=== PATIENT | male | born 1965 | race African-American/Black ===

== ENCOUNTER 2016-08-28 11:02 | Emergency (ER) | payer BC ==
[2016-08-28 11:14] VITALS: TEMP 98.5; BMI 27.4
--- NOTE | 2016-08-28 11:48 | PDOC ---
History of Present Illness - General Chief Complaint: Blood Sugar Problem Stated Complaint: COUGH (DIABETIC) Time Seen by Provider: 08/28/16 11:37 History Source: Patient Exam Limitations: No Limitations - History of Present Illness Initial Comments: 08/28/16 13:13 Patient came for evaluation of moist cough without fevers 2 weeks. Denies phlegm production, denies fever, denies any ear or throat pain. Has not taken any medication for relief other than [id number] cough and cold medicine which had mild results. 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 Patient also is a diabetic who was seen and treated at the [facility] for long-term diabetic controlled with metformin and Januvia. However states metformin is new as they are trying to control his numbers to less than 200 and is concerned that his blood sugar needs to be in better control. If any dizziness, headaches, any hyperglycemia. States this morning when he checked his sugar was 200 08/28/16 13:16 Timing/Duration: unsure Severity: mild Associated Symptoms: reports: denies symptoms Past History - Travel Traveled outside of the country in the last 30 days: No Close contact w/someone who was outside of country & ill: No - Past Medical History Allergies/Adverse Reactions: Allergies Allergy/AdvReac Type Severity Reaction Status Date / Time No Known Allergies Allergy Verified 08/28/16 11:11 Home Medications: Ambulatory Orders Albuterol Sulfate Inhaler - [Ventolin HFA Inhaler -] 1 - 2 inh PO Q4H #1 inhaler 08/28/16 Cetirizine HCl/Pseudoephedrine [Allergy+Congestion Relf-D Tab] 1 each PO DAILY # 30 tab 08/28/16 Metformin HCl [Metformin HCl ER] 1,000 mg PO DAILY 08/28/16 Sitagliptin Phos/Metformin HCl [Janumet 50-1,000 mg Tablet] 1 each PO BID Diabetes: Yes HTN: Yes - Psycho/Social/Smoking Cessation Hx Suicidal Ideation: No Smoking History: Never smoked Have you smoked in the past 12 months: No Information on smoking cessation initiated: No Hx Alcohol Use: No Drug/Substance Use Hx: No Substance Use Type: Alcohol Review of Systems - Review of Systems Able to Perform ROS?: Yes Is the patient limited Syriac proficient: Yes Constitutional: Yes: Symptoms Reported, See HPI, Malaise. No: Fever HEENTM: Yes: See HPI, Nose Congestion (clear). No: Symptoms Reported Respiratory: Yes: Symptoms reported, See HPI, Cough (non productive ) Cardiac (ROS): No: Symptoms Reported ABD/GI: No: Symptoms Reported Musculoskeletal: No: Symptoms Reported Integumentary: No: Symptoms Reported Neurological: No: Symptoms reported All Other Systems: Reviewed and Negative *Physical Exam - Vital Signs Last Vital Signs Temp Pulse Resp BP Pulse Ox 98.5 F 104 H 18 120/82 98 08/28/16 11:12 08/28/16 11:12 08/28/16 11:12 08/28/16 11:12 08/28/16 11:12 - Physical Exam General Appearance: Yes: Nourished, Appropriately Dressed. No: Apparent Distress HEENT: positive: RENUKA, TMs Normal (congested but landmarks easily visualized), Pharynx Normal, Rhinorrhea, Sinus Tenderness Neck: positive: Supple. negative: Tender, Lymphadenopathy (R), Lymphadenopathy (L) Respiratory/Chest: positive: Lungs Clear (coarse but clear, and diminished ). negative: Respiratory Distress, Crackles Gastrointestinal/Abdominal: positive: Soft. 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 States feels much improved and is ready for discharge. Add antihistamine with decongestant and continue Proventil pump. Full follow-up with PMD 08/29/16 16:38 *DC/Admit/Observation/Transfer Diagnosis at time of Disposition: Allergic rhinitis Qualifiers: Allergic rhinitis trigger: unspecified Allergic rhinitis seasonality: unspecified seasonality Qualified Code(s): J30.9 - Allergic rhinitis, unspecified - Discharge Dispostion Disposition: HOME Condition at time of disposition: Stable Admit: No - Prescriptions Prescriptions: Cetirizine HCl/Pseudoephedrine [Allergy+Congestion Relf-D Tab] 1 each PO DAILY # 30 tab Albuterol Sulfate Inhaler - [Ventolin HFA Inhaler -] 1 - 2 inh PO Q4H #1 inhaler - Patient Instructions Printed Discharge Instructions: DI for Allergic Rhinitis Additional Instructions: Rest, drink lots of fluids: Teas, water, soups Saltwater gargles. Consider humidifier in room at night Steamy showers/seem to face break up mucus Avoid contact with allergens, exposure to pollens, close windows on a windy day Lots of handwashing and good hygiene Continue [id number] medications for symptomatic relief- may use allergic eyedrops for itching I Continue antihistamines daily until pollen season is over; Zyrtec, Claritin, Arti during the daytime and Benadryl at nighttime as will make sleepy Tylenol or Motrin for fever and pain 2 puffs of Proventil inhaler 4 times a day for the next 3 days then as needed for continued cough and shortness of breath Followup with private physician in one to 2 days evaluation and treatment Consider following up with an alarm technician/quality assurance lab technician for skin testing and possible allergy shots Return to emergency department for worsened symptoms, fevers, dehydration - Post Discharge Activity Work/School Note: Back to Work
[2016-08-28] MEDS ORDERED: ALBUTEROL SO4 2.5/IPRATROPIUM 0.5 INH SOL 3 ML VIAL.NEB. NEB ONE ×2 (11:51→13:15)
[2016-08-28 15:30] VITALS: BP 118/72; PULSE 89
== END 2016-08-28 15:33 | disposition home or self-care (01) ==
LOC: JER 11:02
PROC: 3E0F7GC Introduction of Other Therapeutic Substance into Respiratory Tract, Via Natural or Artificial Opening (ICD-10-PCS; principal; 2016-08-28)
DX: J30.9 Allergic rhinitis, unspecified (principal); E11.9 Type 2 diabetes mellitus without complications; I10 Essential (primary) hypertension; Z79.84 Long term (current) use of oral hypoglycemic drugs
CPT/HCPCS: 99283-25

== ENCOUNTER 2017-10-17 12:57 | Inpatient (IN) | payer BC ==
--- NOTE | 2017-10-17 13:39 | PDOC ---
History of Present Illness <Sidra Livingston - Last Filed: 10/17/17 17:18> - History of Present Illness Initial Comments: 10/17/17 13:34 52-year-old male with a history of [id number] diabetes, hypertension presents to the emergency Department with chest pain 2 hours ago that has since resolved. 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 Patient reports the pain felt like someone was kicking him. He then sat down and states the pain resolved on its own after 10 mins. He states the pain was associated with lightheadedness and a dull gradual onset frontal headache both of which have also resolved. No treatments tried. Patient reports multiple similar episodes of chest pain in the past, most recently 6 months ago for which she was evaluated by a sales promotion representative in [place] and had a normal stress test and normal EKG. Pain at that time was also with activity, denies CP at rest. Patient currently is asymptomatic. Denies any fevers, chills, coughing, weakness , shortness of breath, diaphoresis, abdominal pain, lower extremity swelling. Patient last traveled 4 months ago, no recent immobility. Denies any family history of cardiac disease. Denies any history of smoking. <Alona Ybarra - Last Filed: 10/17/17 17:52> - General Chief Complaint: Chest Pain Stated Complaint: CHEST PAIN Time Seen by Provider: 10/17/17 13:12 Past History <Sidra Livingston - Last Filed: 10/17/17 17:18> - Past Medical History COPD: No Diabetes: Yes HTN: Yes - Suicide/Smoking/Psychosocial Hx Smoking History: Never smoked Have you smoked in the past 12 months: No Hx Alcohol Use: No Drug/Substance Use Hx: No Substance Use Type: Alcohol <Alona Ybarra - Last Filed: 10/17/17 17:52> - Past Medical History Allergies/Adverse Reactions: Allergies Allergy/AdvReac Type Severity Reaction Status Date / Time No Known Allergies Allergy Verified 10/17/17 13:05 Home Medications: Ambulatory Orders Albuterol Sulfate Inhaler - [Ventolin HFA Inhaler -] 1 - 2 inh PO Q4H #1 inhaler 08/28/16 Cetirizine HCl/Pseudoephedrine [Allergy+Congestion Relf-D Tab] 1 each PO DAILY # 30 tab 08/28/16 Metformin HCl [Metformin HCl ER] 1,000 mg PO DAILY 08/28/16 Sitagliptin Phos/Metformin HCl [Janumet 50-1,000 mg Tablet] 1 each PO BID Review of Systems - Review of Systems Comments:: 10/17/17 13:38 GENERAL/CONSTITUTIONAL: No fever or chills. No weakness. HEAD, EYES, EARS, NOSE AND THROAT: No change in vision. No ear pain or discharge. No sore throat. GASTROINTESTINAL: No nausea, vomiting, diarrhea or constipation. GENITOURINARY: No dysuria, frequency, or change in urination. CARDIOVASCULAR: +chest pain, no shortness of breath. RESPIRATORY: No cough, wheezing, or hemoptysis. MUSCULOSKELETAL: No joint or muscle swelling or pain. No neck or back pain. SKIN: No rash NEUROLOGIC: +headache, +lightheadness, no vertigo, loss of consciousness, or change in strength/sensation. ENDOCRINE: No increased thirst. No abnormal weight change. HEMATOLOGIC/LYMPHATIC: No anemia, easy bleeding, or history of blood clots. ALLERGIC/IMMUNOLOGIC: No hives or skin allergy. <Alona Ybarra - Last Filed: 10/17/17 17:52> *Physical Exam - Vital Signs Last Vital Signs Temp Pulse Resp BP Pulse Ox 98.6 F 61 18 101/82 99 10/17/17 13:03 10/17/17 14:11 10/17/17 14:11 10/17/17 14:11 10/17/17 14:11 <Sidra Livingston - Last Filed: 10/17/17 17:18> - Vital Signs Last Vital Signs Temp Pulse Resp BP Pulse Ox 98.6 F 90 18 139/93 99 10/17/17 13:03 10/17/17 13:03 10/17/17 13:03 10/17/17 13:03 10/17/17 13:03 - Physical Exam Comments: 10/17/17 13:40 GENERAL: Awake, alert, and fully oriented, in no acute distress HEAD: No signs of trauma EYES: PERRLA, EOMI, sclera anicteric, conjunctiva clear ENT: Auricles normal inspection, hearing grossly normal, nares patent, oropharynx clear without exudates. Moist mucosa NECK: Normal ROM, supple, no lymphadenopathy, JVD, or masses LUNGS: Breath sounds equal, clear to auscultation bilaterally. No wheezes, and no crackles HEART: Regular rate and rhythm, normal S1 and S2, no murmurs, rubs or gallops. + tenderness when palpating sternum ABDOMEN: Soft, nontender, normoactive bowel sounds. No guarding, no rebound. No masses EXTREMITIES: Normal range of motion, no edema. No clubbing or cyanosis. No cords, erythema, or tenderness NEUROLOGICAL: Normal speech, cranial nerves intact, negative pronator drift, 5/ 5 strength in all 4 extremities, normal sensation to light touch in all 4 extremities, normal cerebellar exam, normal gait, normal reflexes and tone SKIN: Warm, Dry, normal turgor, no rashes or lesions noted. <Alona Ybarra - Last Filed: 10/17/17 17:52> Heart Score/ECG Review - History History: Moderately suspicious - Electrocardiogram EKG: Non specific repolarization disturbance - Age Age: 45-65 - Risk Factors Risk Factors Heart Score: Yes Hx Hypertension, Yes Hx Diabetes, Yes Hx Obesity Based on the list above the patient has:: >/=3 risk factors or Hx atherosclerotic disease - Troponin Troponin: </= normal limit - Score Heart Score - Total: 5 #1 10/17/17 13:43 Twelve-lead EKG was performed and reviewed by me. Normal sinus rhythm, rate 89. Normal axis. No ST elevations. T wave flattening in leads 1 and V6 with a T- wave inversion in aVL. No previous EKGs in our system to compare. <Alona Ybarra - Last Filed: 10/17/17 17:52> ED Treatment Course - LABORATORY CBC & Chemistry Diagram: 10/17/17 14:05 10/17/17 14:05 - ADDITIONAL ORDERS Additional order review: 10/17/17 14:05 RBC 4.81 MCV 84.3 MCHC 33.9 RDW 13.9 MPV 8.0 Neutrophils % 48.2 D Lymphocytes % 40.8 H D Monocytes % 8.9 Eosinophils % 1.3 D Basophils % 0.8 D - RADIOLOGY Radiograph Interpretation: 10/17/17 14:37 Chest X-Ray was reviewed by Dr. Ybarra and over-read by Radiology. Impression: No evidence of active pulmonary disease. <Sidra Livingston - Last Filed: 10/17/17 17:18> - LABORATORY CBC & Chemistry Diagram: 10/17/17 14:05 10/17/17 14:05 - RADIOLOGY Radiology Studies Ordered: Category Date Time Status CHEST X-RAY PORTABLE* [RAD] Stat Radiology 10/17/17 13:34 Ordered <Alona Ybarra - Last Filed: 10/17/17 17:52> Medical Decision Making - Medical Decision Making 10/17/17 17:18 Dr. Katalina Traore's office was called to discussion patient's admission. She was paged at 3:14 pm, then a second time at 4:[address] Traore called back but she hung up after being on hold for too long. She was paged again at 4:32 pm and we are currently awaiting a call back. Case discussed with Dr. Traore at 5:15 pm. <Sidra Livingston - Last Filed: 10/17/17 17:18> - Medical Decision Making 10/17/17 13:44 52-year-old male with a history of diabetes and hypertension presents emergency department with exertional chest pain. Vitals Unremarkable. Exam with only tenderness to palpation of the sternum. EKG with some T-wave flattening and a single inversion in aVL, but no ST elevations. Heart score is 5. Given elevated heart score, patient is at moderate risk for a cardiac event. We'll check labs including troponin, x-ray and admit to observation. 10/17/17 17:51 Labs, CXR wnl Case discussed with Dr. Traore, pt admitted to tele obs Case discussed in detail with admitting physician including history, physical exam and ancillary studies. Admitting physician has assumed care for the patient, will follow all pending diagnostics and will complete the evaluation and treatment. <Alona Ybarra - Last Filed: 10/17/17 17:52> *DC/Admit/Observation/Transfer - Attestations Scribe Attestion: 10/17/17 14:37 Documentation prepared by Sidra Livingston, acting as medical records manager for Alona Ybarra MD. <Sidra Livingston Last Filed: 10/17/17 17:18> - Discharge Dispostion Decision to Admit order: Yes - Attestations Physician Attestion: 10/17/17 17:52 I, Dr. Alona Ybarra MD, attest that this document has been prepared under my direction and personally reviewed by me in its entirety. I further attest, that it accurately reflects all work, treatment, procedures and medical decision -making performed by me. <Alona Ybarra - Last Filed: 10/17/17 17:52> Diagnosis at time of Disposition: Chest pain - Discharge Dispostion Condition at time of disposition: Stable - Referrals Referrals: Garfield Hernadez MD [Primary Care Provider] -
[2017-10-17 14:15] LABS: BASO % 0.8 % (0-2.0); EOS % 1.3 % (0-4.5); HEMATOCRIT 40.6 % (35.4-49); HEMOGLOBIN 13.8 GM/dL (11.7-16.9); LYMPH % 40.8 % (8-40); MCH 28.6 pg (25.7-33.7); MCHC 33.9 g/dl (32.0-35.9); MEAN CELL VOLUME 84.3 fl (80-96); MONO % 8.9 % (3.8-10.2); NEUT % 48.2 % (42.8-82.8); PLATELET COUNT 230 K/MM3 (134-434); RBC 4.81 M/mm3 (4.00-5.60); RDW 13.9 % (11.9-15.9); WHITE BLOOD COUNT 4.1 K/mm3 (4.0-10.0)
[2017-10-17 14:42] LABS: ANION GAP 7 (8-16); BILIRUBIN,TOTAL 0.3 mg/dL (0.2-1.0); BLOOD UREA NITROGEN 14 mg/dL (7-18); CALCIUM 9.4 mg/dL (8.5-10.1); CHLORIDE 105 mmol/L (98-107); CO2 25 mmol/L (21-32); CREATININE 1.2 mg/dL (0.7-1.3); GLUCOSE,RANDOM 192 mg/dL (74-106); MAGNESIUM 1.6 mg/dL (1.8-2.4); POTASSIUM 4.3 mmol/L (3.5-5.1); SGOT/AST 18 U/L (15-37); SODIUM 137 mmol/L (136-145); TOT PROT 7.6 g/dl (6.4-8.2)
[2017-10-17 14:48] LABS: ALK PHOS 94 U/L (45-117); SGPT/ALT 33 U/L (12-78)
[2017-10-17] MEDS ORDERED: ASPIRIN 325 MG TABLET PO ONE (15:10)
[2017-10-17] MEDS ORDERED: ASPIRIN 325 MG TABLET ONE (15:16)
[2017-10-18 06:02] LABS: BASO % 0.7 % (0-2.0); EOS % 2.1 % (0-4.5); HEMATOCRIT 40.5 % (35.4-49); HEMOGLOBIN 13.9 GM/dL (11.7-16.9); LYMPH % 37.5 % (8-40); MCHC 34.2 g/dl (32.0-35.9); MEAN PLT VOLUME 7.9 fl (7.5-11.1); MONO % 9.5 % (3.8-10.2); NEUT % 50.2 % (42.8-82.8); PLATELET COUNT 207 K/MM3 (134-434); RBC 4.77 M/mm3 (4.00-5.60); RDW 13.8 % (11.9-15.9); WHITE BLOOD COUNT 4.7 K/mm3 (4.0-10.0)
[2017-10-18 06:23] LABS: ALBUMIN 3.8 g/dl (3.4-5.0); ALK PHOS 82 U/L (45-117); ANION GAP 7 (8-16); BILIRUBIN,TOTAL 0.4 mg/dL (0.2-1.0); BLOOD UREA NITROGEN 15 mg/dL (7-18); CALCIUM 8.9 mg/dL (8.5-10.1); CHLORIDE 106 mmol/L (98-107); CO2 28 mmol/L (21-32); CREATININE 1.1 mg/dL (0.7-1.3); GLUCOSE,RANDOM 142 mg/dL (74-106); POTASSIUM 4.6 mmol/L (3.5-5.1); SGOT/AST 18 U/L (15-37); SGPT/ALT 31 U/L (12-78); SODIUM 141 mmol/L (136-145); TOT PROT 7.4 g/dl (6.4-8.2)
[2017-10-18] MEDS: metFORMIN HCL 500 MG TABLET (FP) PO SCH ×2 (07:05→17:11)
[2017-10-18] MEDS: sitaGLIPtin PHOSPHATE 50 MG TABLET PO SCH ×2 (07:05→17:11)
[2017-10-18] MEDS ORDERED: sitaGLIPtin PHOSPHATE 50 MG TABLET ONE (07:50)
[2017-10-18] MEDS ORDERED: metFORMIN HCL 500 MG TABLET (FP) ONE (07:50)
[2017-10-18] MEDS: INSULIN SLIDING SCALE (NOVOLOG) 1 VIAL SQ SCH ×5 (08:06→21:34)
--- NOTE | 2017-10-18 08:33 | CON.CARD ---
Consult Consult Specialty:: Cardiology Referred by:: Dr. Traore Reason for Consultation:: chest pain - History of Present Illness Chief Complaint: chest pain History of Present Illness: 52M DM, HTN, HL presented to ER from work with "pounding" chest pain. Central sternal, associated with mild SOB, endorses nausea. No diaphoresis. No palpitations. No edema, no CHF sx. CK and TnI negative x 2. CXR WNL. Of note, echo and ETT in office earlier this year was unremarkable. - History Source History Provided By: Patient, Medical Record Limitations to Obtaining History: No Limitations - Past Medical History Cardio/Vascular: Yes: HTN Endocrine: Yes: Diabetes Mellitus - Alcohol/Substance Use Hx Alcohol Use: No - Smoking History Smoking history: Never smoked Have you smoked in the past 12 months: No Home Medications - Allergies Allergies/Adverse Reactions: Allergies Allergy/AdvReac Type Severity Reaction Status Date / Time No Known Allergies Allergy Verified 10/17/17 13:05 - Home Medications Home Medications: Ambulatory Orders Albuterol Sulfate Inhaler - [Ventolin HFA Inhaler -] 1 - 2 inh PO Q4H #1 inhaler 08/28/16 Cetirizine HCl/Pseudoephedrine [Allergy+Congestion Relf-D Tab] 1 each PO DAILY # 30 tab 08/28/16 Metformin HCl [Metformin HCl ER] 1,000 mg PO DAILY 08/28/16 Sitagliptin Phos/Metformin HCl [Janumet 50-1,000 mg Tablet] 1 each PO BID Family Disease History - Family Disease History Family History: Unremarkable (Born in [facility], does not know history) Review of Systems Findings/Remarks: see HPI - Review of Systems Constitutional: reports: No Symptoms Eyes: reports: No Symptoms HENT: reports: No Symptoms Neck: reports: No Symptoms Cardiovascular: reports: Chest Pain Gastrointestinal: reports: Nausea Genitourinary: denies: No Symptoms, Burning, Discharge, Dysuria, Flank Pain, Frequency, Hematuria, Incontinence, Lesions, Menses, Pain, Testicular Mass, Testicular Pain, Testicular Swelling, Urgency, Vaginal Bleeding, Other Breasts: denies: No Symptoms Reported, See HPI, Breast Implants, Discharge from Nipple, Lumps, Pain, Skin Changes, Other Musculoskeletal: denies: No Symptoms, Back Pain, Crepitus, Decreased ROM, Extremity Pain, Joint Pain, Joint Swelling, Muscle Pain, Muscle Cramps, Muscle Weakness, Other Integumentary: denies: No Symptoms, Blister, Bruising, Change in Color, Eczema, Erythema, Incision, Lesions, Lump, Pallor, Pruritis, Rash, Wound, Other Neurological: denies: No Symptoms, Change in LOC, Change in Speech, Confusion, Dizziness, Headache, Incoordination, Numbness, Parasthesia, Pre-Existing Deficit , Seizure, Syncope, Tremors, Unsteady Gait, Weakness, Other Endocrine: denies: No Symptoms, Excessive Sweating, Flushing, Increased Hunger, Increased Thirst, Intolerance to Cold, Intolerance to Heat, Unexplained Weight Gain, Unexplained Weight Loss, Other Hematology/Lymphatic: denies: No Symptoms, Easily Bruised, Excessive Bleeding, Swollen Glands, Other Psychiatric: denies: No Symptoms, Altered Sleep Pattern, Anxiety, Depression, Hallucinations, Panic, Paranoia, Suicidal, Other - Risk Factors Known Risk Factors: Yes: Diabetes Mellitus, Hypertension Vital Signs: Vital Signs Temperature 98.2 F 10/18/17 06:32 Pulse Rate 73 10/18/17 06:32 Respiratory Rate 17 10/18/17 06:32 Blood Pressure 144/93 10/18/17 06:32 O2 Sat by Pulse Oximetry (%) 100 10/18/17 06:32 Constitutional: Yes: No Distress, Calm Eyes: Yes: Conjunctiva Clear, EOM Intact HENT: Yes: Atraumatic, Normocephalic Neck: Yes: Supple, Trachea Midline Respiratory: Yes: CTA Bilaterally Gastrointestinal: Yes: Soft (non-tender) Cardiovascular: Yes: Regular Rate and Rhythm JVD: No Carotid Bruit: No PMI: Non-Displaced Heart Sounds: Yes: S1, S2 (RRR. No m/r/g) Edema: No Peripheral Pulses WNL: No Neurological: Yes: Alert, Oriented - Other Data Labs, Other Data: CBC, BMP 10/18/17 05:45 10/18/17 05:45 Troponin, BNP 10/17/17 10/17/17 10/18/17 14:05 14:05 05:45 Troponin I < 0.02 < 0.02 B-Natriuretic Peptide < 5.00 L Troponin, BNP 10/17/17 10/17/17 10/18/17 14:05 14:05 05:45 Troponin I < 0.02 < 0.02 B-Natriuretic Peptide < 5.00 L Laboratory Tests 10/17/17 10/18/17 10/18/17 14:05 05:45 05:45 WBC 4.7 Hgb 13.9 Plt Count 207 Sodium Potassium BUN Creatinine Creatine Kinase 277 Troponin I < 0.02 < 0.02 10/18/17 05:45 WBC Hgb Plt Count Sodium 141 Potassium 4.6 BUN 15 Creatinine 1.1 Creatine Kinase Troponin I NSR, cannot r/o old septal NV Echo: Pending Ejection Fraction %: LVEF > or = 40 % Imaging - Results Chest X-ray: Report Reviewed, Image Reviewed EKG: Image Reviewed (NSR, Cannot r/o old septal NV, no acute ST changes) Assessment/Plan IMP: Several cardiac risk factors with atypical CP and negative cardiac enzymes REC: Telemetry. For echo for EF assessment, r/o pericardial disease, PHTN. After 3rd enzymes, stress MIBI today. ASA Further reccs pending above diagnostic evaluation.
[2017-10-18] MEDS ORDERED: PATIENT'S OWN MEDICATION (NON-FORMULARY) (Sitagliptin Phos/Metformin Hcl [Janumet 50-1,000 PO SCH (10:00)
[2017-10-18] MEDS ORDERED: PANTOPRAZOLE 40 MG TABLET (FP) PO SCH (10:00)
[2017-10-18] MEDS: HEPARIN NA (PORCINE) 5,000 UNITS/ML 1ML VIAL SQ SCH ×3 (10:00→21:34)
[2017-10-18] MEDS ORDERED: PANTOPRAZOLE 40 MG TABLET (FP) ONE (10:42)
[2017-10-18] MEDS ORDERED: HEPARIN NA (PORCINE) 5,000 UNITS/ML 1ML VIAL ONE (10:43)
--- NOTE | 2017-10-18 12:39 | ECHO ---
Name: ADÁN, MIKE Exam:Adult Echocardiogram Study Date: 10/18/2017 09:17 AM Reason For Study: Chest pain Height: 66 in Weight: 170 lb BSA: 1.9 m2 MMode/2D Measurements & Calculations IVSd: 1.1 cm Ao root diam: 3.0 cm LVIDd: 3.7 cm LA dimension: 3.0 cm LVIDs: 2.5 cm LVPWd: 1.0 cm EDV(Teich): 59.0 ml ESV(Teich): 21.8 ml Doppler Measurements & Calculations MV E max angel: 90.7 cm/sec AI P1/2t: 772.3 msec MV A max angel: 103.8 cm/sec MV E/A: 0.87 MV dec time: 0.27 sec AI max angel: 321.7 cm/sec TR max angel: 202.9 cm/sec AI max P.4 mmHg TR max P.5 mmHg AI dec slope: 122.0 cm/sec2 Med Peak E' Angel: 7.6 cm/sec PI Vmax: 150.7 cm/sec Med E/e': 11.9 Lat Peak E' Angel: 9.4 cm/sec Lat E/e': 9.7 Procedure A complete two-dimensional transthoracic echocardiogram was performed (2D, M-mode, Doppler and color flow Doppler). Left Ventricle The left ventricular size, thickness and function are normal. The left ventricular ejection fraction is normal. Ejection Fraction = 65-70%. The left ventricular wall motion is normal. Right Ventricle The right ventricle is normal in size and function. Atria Normal left and right atrial size and function. Mitral Valve There is no mitral regurgitation noted. Tricuspid Valve There is trace tricuspid regurgitation. There was insufficient TR detected to calculate RV systolic p ressure. Aortic Valve No hemodynamically significant valvular aortic stenosis. No aortic regurgitation is present. Pulmonic Valve There is no pulmonic valvular regurgitation. Great Vessels The aortic root is normal size. Pericardium/Pleura There is no pericardial effusion. Interpretation Summary The left ventricular size, thickness and function are normal. The right ventricle is normal in size and function. There is trace tricuspid regurgitation. MD Yaya Soto 10/18/2017 12:38 PM
[2017-10-18 13:48] LABS: CHOLESTEROL 218 mg/dL (50-200); HDL CHOLESTEROL 50 mg/dL (40-60); TRIGLYCERIDES 173 mg/dL (35-160)
[2017-10-18 13:59] VITALS: BMI 27.3
--- NOTE | 2017-10-18 14:23 | EKG ---
Test Reason : Blood Pressure : / mmHG Vent. Rate : 089 BPM Atrial Rate : 089 BPM P-R Int : 162 ms QRS Dur : 090 ms QT Int : 326 ms P-R-T Axes : 075 020 066 degrees QTc Int : 396 ms NORMAL SINUS RHYTHM POSSIBLE LEFT ATRIAL ENLARGEMENT SEPTAL INFARCT , AGE UNDETERMINED ABNORMAL ECG WHEN COMPARED WITH ECG OF 30-JUL-2009 11:29, SEPTAL INFARCT IS NOW PRESENT Confirmed by ZINA CONTRERAS, BRENDA ([id number]) on 10/18/2017 2:22:59 PM Referred By: Confirmed By:BRENDA IZAGUIRRE MD
--- NOTE | 2017-10-18 15:52 | HP ---
Admitting History and Physical - Past Medical History Cardiovascular: Yes: HTN Endocrine: Yes: Diabetes Mellitus - Smoking History Smoking history: Never smoked Have you smoked in the past 12 months: No - Alcohol/Substance Use Hx Alcohol Use: No Home Medications - Allergies Allergies/Adverse Reactions: Allergies Allergy/AdvReac Type Severity Reaction Status Date / Time No Known Allergies Allergy Verified 10/17/17 13:05 - Home Medications Home Medications: Ambulatory Orders Albuterol Sulfate Inhaler - [Ventolin HFA Inhaler -] 1 - 2 inh PO Q4H #1 inhaler 08/28/16 Cetirizine HCl/Pseudoephedrine [Allergy+Congestion Relf-D Tab] 1 each PO DAILY # 30 tab 08/28/16 Metformin HCl [Metformin HCl ER] 1,000 mg PO DAILY 08/28/16 Sitagliptin Phos/Metformin HCl [Janumet 50-1,000 mg Tablet] 1 each PO BID Physical Examination Vital Signs: Vital Signs Temperature 98.0 F 10/18/17 13:32 Pulse Rate 79 10/18/17 13:32 Respiratory Rate 18 10/18/17 13:32 Blood Pressure 142/95 10/18/17 13:32 O2 Sat by Pulse Oximetry (%) 100 10/18/17 13:32 Labs: CBC, BMP 10/18/17 05:45 10/18/17 05:45
[2017-10-18 21:19] VITALS: BP 149/97; PULSE 96; TEMP 97.8
--- NOTE | 2017-10-19 14:01 | DS ---
Physical Examination Vital Signs: Vital Signs Temperature 97.8 F 10/18/17 21:14 Pulse Rate 96 H 10/18/17 21:14 Respiratory Rate 20 10/18/17 21:14 Blood Pressure 149/97 10/18/17 21:14 O2 Sat by Pulse Oximetry (%) 99 10/18/17 21:14 Labs: CBC, BMP 10/18/17 05:45 10/18/17 05:45 Discharge Summary Reason For Visit: CHEST PAIN Condition: Good - Instructions Diet, Activity, Other Instructions: 2200 calorie diabetic diet and 2 [address] sodium diet See Dr Hernadez in 1 week Referrals: Garfield Hernadez MD [Primary Care Provider] - Disposition: HOME - Home Medications Comprehensive Discharge Medication List: Ambulatory Orders Albuterol Sulfate Inhaler - [Ventolin HFA Inhaler -] 1 - 2 inh PO Q4H #1 inhaler 08/28/16 Cetirizine HCl/Pseudoephedrine [Allergy+Congestion Relf-D Tab] 1 each PO DAILY # 30 tab 08/28/16 Metformin HCl [Metformin HCl ER] 1,000 mg PO DAILY 08/28/16 Sitagliptin Phos/Metformin HCl [Janumet 50-1,000 mg Tablet] 1 each PO BID
== END 2017-10-18 21:20 | disposition home or self-care (01) | DRG 313 ==
LOC: JER 12:57 → JERBED 19:33 → OBSVTOIN 10-18 01:45 → J4W 10-18 12:03
PROVIDERS: ADMIT Internal Medicine; ATTEND Internal Medicine
DX: R07.89 Other chest pain (principal); E11.9 Type 2 diabetes mellitus without complications; I10 Essential (primary) hypertension; Z79.84 Long term (current) use of oral hypoglycemic drugs; E66.9 Obesity, unspecified; Z68.27 Body mass index [BMI] 27.0-27.9, adult; E78.5 Hyperlipidemia, unspecified; I27.20 Pulmonary hypertension, unspecified
CPT/HCPCS: 36415; 71045-TC-FY; 76700-TC; 78452-TC; 80053; 80061; 82550; 82553; 82962; 83036; 83721; 83735; 83880; 84484; 85025; 93005; 93010; 93017; 93306-TC; 99285-25; A9502; G0378; J1644

== ENCOUNTER 2018-02-18 02:11 | Inpatient (IN) | payer BC ==
--- NOTE | 2018-02-18 02:18 | PDOC ---
Attending Attestation - Resident Resident Name: Cosme Emery - ED Attending Attestation I have performed the following: I have examined & evaluated the patient, The case was reviewed & discussed with the resident, I agree w/resident's findings & plan - HPI HPI: 02/18/18 03:56 Pt came with severe abd pain that began earlier today. Now pain has resolved, but he come to check it out. - Physicial Exam PE: 02/18/18 03:57 Agree with resident exam - Medical Decision Making 02/18/18 03:57 Pt has a lipase od 4000. He is diabetic. He will have a dry CT scan to r/o pseudocyst. Pt kim be kept NPO. He will be admitted to his PMD [facility] and we will consult with the GI that she recommends. 02/18/18 06:39 CXR normal 02/18/18 06:40 Patient Name: MIKE MCCAIN THIS IS A PRELIMINARY REPORT FROM [facility] DATE OF SERVICE: 2018-02-18 04:17:35 IMAGES: [id number] EXAM: CT abdomen without contrast and CT pelvis without contrast HISTORY: 52-year-old male pancreatitis COMPARISON: None. FINDINGS: Lack of intravenous contrast limits this exam. Lack of oral contrast limits this exam. Mild basilar atelectasis. Mild hepatomegaly. Mild nonspecific 1 cm abnormal dilation of the distal common bile duct in the pancreatic head versus a nonspecific hypodense lesion in the pancreatic head near the common bile duct on axial image 55 coronal image 51 and sagittal image 60 may be due to partial obstruction of the distal common bile duct from choledocholithiasis or other disease in the pancreatic head. Noncontrast evaluation of the gallbladder, pancreas spleen adrenal glands right kidney appear otherwise unremarkable. Left kidney 4 cm cystic process. No nephrolithiasis or hydronephrosis. Noncontrast evaluation of the stomach small bowel and appendix appear unremarkable. No appendicitis. Diverticulosis of the colon without diverticulitis. Nodular nonspecific prostatomegaly. Bladder appears unremarkable. No free air. No free fluid. No abscess. Moderate degenerative disc disease. IMPRESSION: Mild hepatomegaly. Mild nonspecific 1 cm abnormal dilation of the distal common bile duct in the pancreatic head versus a nonspecific hypodense lesion in the pancreatic head near the common bile duct on axial image 55 coronal image 51 and sagittal image 60 may be due to partial obstruction of the distal common bile duct from choledocholithiasis or other disease in the pancreatic head. If clinically indicated follow-up outpatient MRCP and MRI pancreas with contrast may be needed to evaluate for a nonspecific hypodense lesion in the pancreatic head. Left kidney 4 cm cystic process. Diverticulosis of the colon without diverticulitis. Nodular nonspecific prostatomegaly. If clinically indicated recommend correlation with PSA level. THIS DOCUMENT HAS BEEN ELECTRONICALLY SIGNED
[2018-02-18] MEDS ORDERED: SODIUM CHLORIDE 0.9% 500 ML INFUS.BAG IV ONE (02:46)
[2018-02-18] MEDS ORDERED: ONDANSETRON 4 MG/2 ML VIAL IVPB ONE (02:47)
[2018-02-18 02:58] VITALS: BMI 27.4
[2018-02-18] MEDS ORDERED: ONDANSETRON 4 MG/2 ML VIAL ONE (03:01)
[2018-02-18 03:09] LABS: BASO % 0.4 % (0-2.0); HEMATOCRIT 43.5 % (35.4-49); HEMOGLOBIN 14.4 GM/dL (11.7-16.9); LYMPH % 24.3 % (8-40); MCH 28.6 pg (25.7-33.7); MCHC 33.2 g/dl (32.0-35.9); MEAN CELL VOLUME 86.2 fl (80-96); MEAN PLT VOLUME 8.3 fl (7.5-11.1); MONO % 5.6 % (3.8-10.2); NEUT % 68.7 % (42.8-82.8); PLATELET COUNT 241 K/MM3 (134-434); RBC 5.04 M/mm3 (4.00-5.60); RDW 13.1 % (11.9-15.9); WHITE BLOOD COUNT 9.2 K/mm3 (4.0-10.0)
[2018-02-18] MEDS ORDERED: MAG HYDROX/AL HYDROX/SIMETH 30 ML UNIT-DOSE CUP PO ONE (03:31)
[2018-02-18] MEDS ORDERED: MAG HYDROX/AL HYDROX/SIMETH 30 ML UNIT-DOSE CUP ONE (03:35)
--- NOTE | 2018-02-18 03:44 | PDOC ---
History of Present Illness - General Chief Complaint: Pain Stated Complaint: ABDOMINAL PAIN Time Seen by Provider: 02/18/18 02:18 History Source: Patient Exam Limitations: No Limitations - History of Present Illness Initial Comments: 02/18/18 03:44 52 yo M with a hx of HTN, HLD, DM, colon CA (dx August 2017; s/p resection September 2017) presents to the emergency department with abdominal pain that began at 1: 30 am this morning. He stated earlier in the day he had 1x emesis event without blood. The pain was sudden onset, diffusely located throughout the abdomen, 10 10, described as sharp, with associative nausea. He described have a LOC event during this pain episode while having a watery bowel movement. Per the patient, he had two LOC episodes adjacent to each other with the witnessed second one ( by ) lasting 20 minutes. Currently, he denies having abdominal pain and feels generalized weakness. Has nausea and frontal headaches. Denies the following: fever, chills, visual changes, focal neurological deficits, SOB, hx of pancreatitis, hx of cholelithiasis, hx of nephrolithiasis, dysuria, hematuria , melena, hematochezia, and leg pain/swelling. Pmhx: Refer to above Shx: Refer to above Meds: janumet and lisinopril Allergies: NKDA Social: Denies tobacco, alcohol, and substance abuse. Past History - Past Medical History Allergies/Adverse Reactions: Allergies Allergy/AdvReac Type Severity Reaction Status Date / Time No Known Allergies Allergy Verified 02/18/18 03:45 Home Medications: Ambulatory Orders Sitagliptin Phos/Metformin HCl [Janumet 50-1,000 mg Tablet] 1 each PO BID Lisinopril/Hydrochlorothiazide [Lisinopril-Hctz 20-12.5 mg Tab] 1 each PO DAILY 02/18/18 COPD: No Diabetes: Yes (NIDDM) HTN: Yes Hypercholesterolemia: Yes - Suicide/Smoking/Psychosocial Hx Smoking History: Never smoked Have you smoked in the past 12 months: No Hx Alcohol Use: No Drug/Substance Use Hx: No Substance Use Type: Alcohol Review of Systems - Review of Systems Able to Perform ROS?: Yes Is the patient limited Albanian proficient: No Constitutional: Yes: Weakness. No: Chills, Diaphoresis, Fever HEENTM: No: Recent change in vision, Nose Pain, Throat Pain, Throat Swelling, Mouth Pain Respiratory: No: Shortness of Breath, SOB with Exertion, Hemoptysis Cardiac (ROS): No: Chest Pain, Lightheadedness, Palpitations, Syncope, Chest Tightness ABD/GI: Yes: Nausea. No: Constipated, Diarrhea, Rectal Bleeding, Vomiting, Abdominal cramping, Tarry Stools : No: Burning, Dysuria, Frequency, Hematuria Musculoskeletal: No: Back Pain, Muscle Pain Integumentary: No: Rash Neurological: Yes: Headache. No: Numbness, Paresthesia, Unsteady Gait, Dizziness Psychiatric: No: Change in Appetite Endocrine: No: Unexplained Weight Loss Hematologic/Lymphatic: No: Anemia *Physical Exam - Vital Signs Last Vital Signs Temp Pulse Resp BP Pulse Ox 97.4 F L 93 H 18 133/81 100 02/18/18 02:48 02/18/18 02:48 02/18/18 02:48 02/18/18 02:48 02/18/18 02:48 - Physical Exam General Appearance: Yes: Nourished, Appropriately Dressed HEENT: positive: EOMI, RENUKA, Normal Voice. negative: Sinus Tenderness Neck: positive: Trachea midline. negative: Lymphadenopathy (R), Lymphadenopathy (L) Respiratory/Chest: positive: Lungs Clear, Normal Breath Sounds. negative: Chest Tender, Respiratory Distress, Accessory Muscle Use, Crackles, Rales, Rhonchi, Stridor, Wheezing Cardiovascular: positive: Regular Rhythm, Regular Rate, S1, S2. negative: Systolic Murmur Gastrointestinal/Abdominal: positive: Flat, Soft, Increased Bowel Sounds. negative: Tender, Pulsatile Mass, Distended, Rebound, Tenderness, Hernia Rectal Exam: positive: normal exam, NL Prostate, normal rectal tone. negative: heme negative stool, hemorrhoids Musculoskeletal: positive: Normal Inspection. negative: CVA Tenderness Extremity: positive: Normal Capillary Refill, Normal Inspection, Normal Range of Motion. negative: Tender Integumentary: positive: Normal Color, Dry, Warm Neurologic: positive: logistics planner II-XII NML intact, Fully Oriented, Alert, Normal Mood/ Affect, Normal Response, Motor Strength 5/5. negative: Sensory Deficit ED Treatment Course - LABORATORY CBC & Chemistry Diagram: 02/18/18 03:01 02/18/18 03:01 - ADDITIONAL ORDERS Additional order review: Laboratory Results 02/18/18 02/18/18 03:01 02:46 Creatine Kinase 252 Troponin I 0.03 Stool Occult Blood Negative 02/18/18 03:01 RBC 5.04 MCV 86.2 MCHC 33.2 RDW 13.1 MPV 8.3 Neutrophils % 68.7 D Lymphocytes % 24.3 D Monocytes % 5.6 Eosinophils % 1.0 Basophils % 0.4 - Medications Given in the ED: ED Medications Discontinued Medications Generic Name Dose Route Start Last Admin Trade Name Deo PRN Reason Stop Dose Admin Al Hydroxide/Mg Hydroxide 30 ml 02/18/18 03:31 02/18/18 03:36 Mylanta Oral Suspension - PO 02/18/18 03:32 30 ml ONCE ONE Administration Ondansetron HCl 4 mg 02/18/18 02:47 02/18/18 03:11 Zofran Injection IVPB 02/18/18 02:48 4 mg ONCE ONE Administration Sodium Chloride 1,000 ml 02/18/18 02:46 02/18/18 03:11 Normal Saline - IV 02/18/18 02:47 1,000 ml ONCE ONE Administration Medical Decision Making - Medical Decision Making 02/18/18 05:44 52 yo M with a hx of HTN, HLD, DM, colon CA (dx August 2017; s/p resection September 2017) presents to the emergency department with abdominal pain that began at 1: 30 am this morning. Initial vitals: Initial Vital Signs Temp Pulse Resp BP Pulse Ox 97.4 F L 93 H 18 133/81 100 02/18/18 02:48 02/18/18 02:48 02/18/18 02:48 02/18/18 02:48 02/18/18 02:48 Work up: ddx: pancreatitis, gastritis, gastroparesis, SBO, cholelithiasis/cholecystitis, diverticulosis/diverticulitis, dka, cbc, cmp, lipase, trops, EKG, cxr, ct abdomen/pelvis without contrast, acetone, stool occult blood ordered tx: zofran, 2 mg of morphine, 1 L of NS, and mylanta Laboratory Tests 02/18/18 02/18/18 02/18/18 02:46 03:01 03:01 WBC 9.2 RBC 5.04 Hgb 14.4 Hct 43.5 MCV 86.2 MCH 28.6 MCHC 33.2 RDW 13.1 Plt Count 241 MPV 8.3 Absolute Neuts (auto) 6.3 Neutrophils % 68.7 D Lymphocytes % 24.3 D Monocytes % 5.6 Eosinophils % 1.0 Basophils % 0.4 Nucleated RBC % 0 Sodium 135 L Potassium 4.2 Chloride 99 Carbon Dioxide 27 Anion Gap 9 BUN 14 Creatinine 1.2 Creat Clearance w eGFR > 60 Random Glucose 140 H Calcium 9.4 Total Bilirubin 0.3 AST 27 ALT 31 Alkaline Phosphatase 85 Creatine Kinase Creatine Kinase Index CK-MB (CK-2) Troponin I Total Protein 7.8 Albumin 4.1 Lipase 4076 H Stool Occult Blood Negative Acetone, Qual 02/18/18 02/18/18 03:01 03:01 WBC RBC Hgb Hct MCV MCH MCHC RDW Plt Count MPV Absolute Neuts (auto) Neutrophils % Lymphocytes % Monocytes % Eosinophils % Basophils % Nucleated RBC % Sodium Potassium Chloride Carbon Dioxide Anion Gap BUN Creatinine Creat Clearance w eGFR Random Glucose Calcium Total Bilirubin AST ALT Alkaline Phosphatase Creatine Kinase 252 Creatine Kinase Index 0.5 CK-MB (CK-2) 1.3 Troponin I 0.03 Total Protein Albumin Lipase Stool Occult Blood Acetone, Qual Trace Stool occult blood was negative. Lipase was elevated. Likely to be pancreatitis. Pt denies hx of pancreatitis in the past. Will admit, make NPO, and control pain as needed. Dr. Traore was contacted at 5:25 am for call to admit. Dipo: Admit *DC/Admit/Observation/Transfer Diagnosis at time of Disposition: Pancreatitis Qualifiers: Chronicity: acute Pancreatitis type: other Acute pancreatitis complication: unspecified Qualified Code(s): K85.80 - Other acute pancreatitis without necrosis or infection - Discharge Dispostion Condition at time of disposition: Unchanged/Unknown Decision to Admit order: Yes - Referrals - Patient Instructions - Post Discharge Activity Forms/Work/School Notes: Parent(s) Back to Work Note
[2018-02-18 03:45] LABS: ALBUMIN 4.1 g/dl (3.4-5.0); ALK PHOS 85 U/L (45-117); ANION GAP 9 MMOL/L (8-16); BILIRUBIN,TOTAL 0.3 mg/dL (0.2-1); BLOOD UREA NITROGEN 14 mg/dL (7-18); CALCIUM 9.4 mg/dL (8.5-10.1); CHLORIDE 99 mmol/L (98-107); CO2 27 mmol/L (21-32); CREATININE 1.2 mg/dL (0.55-1.3); GLUCOSE,RANDOM 140 mg/dL (74-106); LIPASE 4076 U/L (73-393); POTASSIUM 4.2 mmol/L (3.5-5.1); SGOT/AST 27 U/L (15-37); SGPT/ALT 31 U/L (13-61); SODIUM 135 mmol/L (136-145); TOT PROT 7.8 g/dl (6.4-8.2)
[2018-02-18] MEDS ORDERED: PSEUDOEPHEDRINE HCL 60 MG TABLET PO ONE (03:45)
[2018-02-18] MEDS ORDERED: morphine CARPU-JECT 2 MG/1 ML DISP.SYRIN IVPUSH ONE (03:55)
[2018-02-18] MEDS ORDERED: MORPHINE SULFATE 2 MG/ML VIAL ONE (03:56)
[2018-02-18] MEDS ORDERED: SODIUM CHLORIDE 1,000 ML IV STA (05:48)
--- NOTE | 2018-02-18 08:58 | HP ---
CHIEF COMPLAINT: abdominal pain PCP: Dr. Garfield Herandez HISTORY OF PRESENT ILLNESS: Patient is a 52 year old male with a significant past medical history of colon cancer (diagnosed august 2017 with resection september 2017)diabetes mellitus, hyperlipidemia and hypertension. Brought into the ED today via EMS for severe nausea/ vomiting, and severe abdominal cramps. States that he was feeling well yesterday, but today at approximately 0100 a.m. he began to feel severe abdominal pain that he describes as sharp cramps with nausea. He sat in the toilet and strained to have a BM. Had a small BM, then had watery BM. Per the patient, he had two LOC episodes adjacent to each other with the witnessed second one by his . then called EMS for help. He states he has had LOC before in 2017 whe he was visiting [place]. On exam, patient is laying in the bed in no acute distress. Alert and oriented x 3, facial symmetry. speech clear. He verbalizes generalized weakness and still feels nausous. He denies fever, chill, any upper or lower arm weakness or tingling. Denies shortness of breath or chest pain. ER course was notable for: (1) lipase 4076 (2) ekg nsr with t wave abnormality (3) Recent Travel: May 2017 PAST MEDICAL HISTORY: colon cancer (diagnosed august 2017 with resection september 2017 )diabetes mellitus, hyperlipidemia and hypertension. PAST SURGICAL HISTORY: colon cancer (diagnosed august 2017 with resection september 2017) Social History: Smoking: denies Alcohol: occasional Drugs: denies Family History: Allergies No Known Allergies Allergy (Verified 02/18/18 03:45) HOME MEDICATIONS: Home Medications Medication Instructions Recorded Sitagliptin Phos/Metformin HCl 1 each PO BID 08/28/16 [Janumet 50-1,000 mg Tablet] Lisinopril/Hydrochlorothiazide 1 each PO DAILY 02/18/18 [Lisinopril-Hctz 20-12.5 mg Tab] PHYSICAL EXAMINATION Vital Signs - 24 hr 02/18/18 02/18/18 02/18/18 02:48 05:42 06:03 Temperature 97.4 F L 97.6 F Pulse Rate 93 H Pulse Rate [ 93 H Apical] Respiratory 18 18 Rate Blood Pressure 133/81 Blood Pressure 143/78 [Right Arm] O2 Sat by Pulse 100 99 100 Oximetry (%) GENERAL: Awake, alert, and fully oriented, in no acute distress. HEAD: Normal with no signs of trauma. EYES: Pupils equal, round and reactive to light, extraocular movements intact, sclera anicteric, conjunctiva clear. No lid lag. EARS, NOSE, THROAT: Ears normal, nares patent, oropharynx clear without exudates. Moist mucous membranes. NECK: Normal range of motion, supple without lymphadenopathy, JVD, or masses. LUNGS: Breath sounds equal, clear to auscultation bilaterally. No wheezes, and no crackles. No accessory muscle use. HEART: Regular rate and rhythm ABDOMEN: Soft, nontender, not distended, normoactive bowel sounds, no guarding, MUSCULOSKELETAL: No CVA tenderness. UPPER EXTREMITIES: No peripheral edema. LOWER EXTREMITIES: No peripheral edema. NEUROLOGICAL: awake and alert PSYCHIATRIC: Cooperative. Good eye contact. Appropriate mood and affect. SKIN: Warm, dry, normal turgor, no rashes or lesions noted, normal capillary refill. Laboratory Results - last 24 hr 02/18/18 02/18/18 02/18/18 02:46 03:01 03:01 WBC 9.2 RBC 5.04 Hgb 14.4 Hct 43.5 MCV 86.2 MCH 28.6 MCHC 33.2 RDW 13.1 Plt Count 241 MPV 8.3 Absolute Neuts (auto) 6.3 Neutrophils % 68.7 D Lymphocytes % 24.3 D Monocytes % 5.6 Eosinophils % 1.0 Basophils % 0.4 Nucleated RBC % 0 Sodium 135 L Potassium 4.2 Chloride 99 Carbon Dioxide 27 Anion Gap 9 BUN 14 Creatinine 1.2 Creat Clearance w eGFR > 60 Random Glucose 140 H Calcium 9.4 Total Bilirubin 0.3 AST 27 ALT 31 Alkaline Phosphatase 85 Creatine Kinase Creatine Kinase Index CK-MB (CK-2) Troponin I Total Protein 7.8 Albumin 4.1 Lipase 4076 H Stool Occult Blood Negative Acetone, Qual 02/18/18 02/18/18 03:01 03:01 WBC RBC Hgb Hct MCV MCH MCHC RDW Plt Count MPV Absolute Neuts (auto) Neutrophils % Lymphocytes % Monocytes % Eosinophils % Basophils % Nucleated RBC % Sodium Potassium Chloride Carbon Dioxide Anion Gap BUN Creatinine Creat Clearance w eGFR Random Glucose Calcium Total Bilirubin AST ALT Alkaline Phosphatase Creatine Kinase 252 Creatine Kinase Index 0.5 CK-MB (CK-2) 1.3 Troponin I 0.03 Total Protein Albumin Lipase Stool Occult Blood Acetone, Qual Trace ASSESSMENT/PLAN: Patient is a 52 year old male with a significant past medical history of colon cancer (diagnosed august 2017 with resection september 2017)diabetes mellitus, hyperlipidemia and hypertension. Brought into the ED today via EMS for severe nausea/ vomiting, and severe abdominal cramps. States that he was feeling well yesterday, but today at approximately 0100 a.m. he began to feel severe abdominal pain that he describes as sharp cramps with nausea. He sat in the toilet and strained to have a BM. Had a small BM, then had watery BM. Per the patient, he had two LOC episodes adjacent to each other with the witnessed second one by his . then called EMS for help. He states he has had LOC before in 2017 whe he was visiting [place]. On exam, patient is laying in the bed in no acute distress. Alert and oriented x 3, facial symmetry. speech clear. He verbalizes generalized weakness and still feels nausous. He denies fever, chill, any upper or lower arm weakness or tingling. Denies shortness of breath or chest pain. GI: Abdominal pain, sharp associated with nausea and vomiting Dx: Pancreatitis vs gastritis, SBO, cholelithiasis or dka Presents with elevated lipase 4000. abdomen soft, non distended. no pain to light palpation. some nausea, but mild. abd ct, pending official read but preliminary report "nonspecific 1 cm abnormal dilation of the distal common bile duct in the pancreatic head versus a nonspecific hypodense lesion in the pancreatic head near the common bile duct on axial image 55 coronal image 51 and sagittal image 60 may be due to partial obstruction of the distal common bile duct from choledocholithiasis or other disease in the pancreatic head". Will consult GI Will order: protonix, npo, LR, morphine for pain. bgms q4. repeat electrolytes. Neuro: LOC loss reported on admission. no neuro deficits seen on exam. denies history of seizures. will order head ct. neuro checks. Endocrine diabetes. npo. bgms q4. hmga1c. anion gap normal. Cardiac: hypertension. hold lisinopril while NPO hld, lipid panel trend troponins fen LR @ 100cc/hr monitor electrolytes npo Prophy: Heparin tid protonix iv push Visit type - Emergency Visit Emergency Visit: Yes Care time: The patient presented to the Emergency Department on the above date and was hospitalized for further evaluation of their emergent condition. - New Patient This patient is new to me today: Yes Date on this admission: 02/18/18 - Critical Care Critical Care patient: No
[2018-02-18] MEDS ORDERED: MORPHINE SULFATE 2 MG/ML VIAL IVPUSH PRN (09:14)
[2018-02-18] MEDS ORDERED: PANTOPRAZOLE SODIUM 40 MG VIAL IVPUSH ONE (09:14)
[2018-02-18] MEDS ORDERED: ONDANSETRON 4 MG/2 ML VIAL IVPUSH PRN (09:50)
[2018-02-18 12:35] LABS: MAGNESIUM 1.7 mg/dL (1.8-2.4)
[2018-02-18] MEDS ORDERED: MAGNESIUM SULF 50% (8.12 MEQ/2 ML-1 GM VIAL) IVPB ONE (13:15)
[2018-02-18] MEDS: HEPARIN NA (PORCINE) 5,000 UNITS/ML 1ML VIAL SQ SCH ×2 (14:48→21:51)
[2018-02-18] MEDS: LACTATED RINGERS SOLUTION 1,000 ML/1,000 ML INFUS.BAG IV SCH (14:48)
--- NOTE | 2018-02-18 18:28 | EKG ---
Test Reason : Blood Pressure : / mmHG Vent. Rate : 094 BPM Atrial Rate : 094 BPM P-R Int : 180 ms QRS Dur : 088 ms QT Int : 352 ms P-R-T Axes : 077 027 017 degrees QTc Int : 440 ms NORMAL SINUS RHYTHM NONSPECIFIC T WAVE ABNORMALITY ABNORMAL ECG WHEN COMPARED WITH ECG OF 18-FEB-2018 02:59, NO SIGNIFICANT CHANGE WAS FOUND Confirmed by MILKA VANCE MD ([id number]) on 02/18/2018 6:28:13 PM Referred By: Confirmed By:MILKA VANCE MD
[2018-02-18 21:39] LABS: URINE APPEARANCE CLEAR; URINE BILIRUBIN NEGATIVE (<2.0 mg/dL); URINE COLOR STRAW; URINE GLUCOSE (UA) NEGATIVE (NEGATIVE); URINE KETONE NEGATIVE (NEGATIVE); URINE LEUK ESTERASE NEGATIVE (NEGATIVE); URINE NITRITE NEGATIVE (NEGATIVE); URINE PROTEIN NEGATIVE (NEGATIVE); URINE UROBILINOGEN NEGATIVE mg/dL (0.2-1.0)
[2018-02-19] MEDS: LACTATED RINGERS SOLUTION 1,000 ML/1,000 ML INFUS.BAG IV SCH ×2 (02:21→10:00)
[2018-02-19] MEDS: HEPARIN NA (PORCINE) 5,000 UNITS/ML 1ML VIAL SQ SCH ×3 (06:17→22:05)
--- NOTE | 2018-02-19 09:35 | CON.GI ---
Consult Consult Specialty:: GI Referred by:: Dr Traore - History of Present Illness History of Present Illness: 52 year old male who was doing well until 02/18/18 when developed severe abdominal pain with nausea. He had two syncopal episodes while straining with BM. In emergency room noted with elevated lipase in the 4,000. CAT scan reveal dilated CBD.Patient s/p colon cancer surgery September 2017,reports not available for Review. Today denies abdominal pain and is hungry. Lipase now 400 - Past Medical History Cardio/Vascular: Yes: HTN Endocrine: Yes: Diabetes Mellitus - Alcohol/Substance Use Hx Alcohol Use: No - Smoking History Smoking history: Never smoked Have you smoked in the past 12 months: No Home Medications - Allergies Allergies/Adverse Reactions: Allergies Allergy/AdvReac Type Severity Reaction Status Date / Time No Known Allergies Allergy Verified 02/18/18 03:45 - Home Medications Home Medications: Ambulatory Orders Sitagliptin Phos/Metformin HCl [Janumet 50-1,000 mg Tablet] 1 each PO BIDAC Lisinopril/Hydrochlorothiazide [Lisinopril-Hctz 20-12.5 mg Tab] 1 each PO DAILY 02/18/18 Physical Exam-GI Vital Signs: Vital Signs Temperature 98.1 F 02/19/18 07:42 Pulse Rate 93 H 02/19/18 07:42 Respiratory Rate 20 02/19/18 07:42 Blood Pressure 112/79 02/19/18 07:42 O2 Sat by Pulse Oximetry (%) 100 02/18/18 21:00 Constitutional: Yes: Well Nourished Eyes: Yes: Conjunctiva Clear HENT: Yes: Atraumatic Neck: Yes: Trachea Midline Cardiovascular: Yes: Regular Rate and Rhythm Respiratory: Yes: CTA Bilaterally ...Palpate: Yes: Soft. No: Firm/Rigid, Guarding, Hepatomegaly, Mass, Pulsatile Mass, Splenomegaly, Tenderness, Tenderness, Epigastium Labs: CBC, BMP 02/18/18 03:01 02/18/18 03:01 Problem List - Problems (1) Pancreatitis Assessment/Plan: uncomplicated etiology unclear R> advance diet if tolerated ok to d/c he was advised to return to the hospital if abdominal pain recurs made aware to follow up Code(s): K85.90 - ACUTE PANCREATITIS WITHOUT NECROSIS OR INFECTION, UNSP Qualifiers: Chronicity: acute Pancreatitis type: other Acute pancreatitis complication: unspecified Qualified Code(s): K85.80 - Other acute pancreatitis without necrosis or infection
[2018-02-19] MEDS: PANTOPRAZOLE SODIUM 40 MG VIAL IVPUSH SCH (09:59)
[2018-02-19 11:31] LABS: HEMATOCRIT 38.6 % (35.4-49); HEMOGLOBIN 13.2 GM/dL (11.7-16.9); MCH 29.7 pg (25.7-33.7); MCHC 34.3 g/dl (32.0-35.9); MEAN CELL VOLUME 86.5 fl (80-96); MEAN PLT VOLUME 8.6 fl (7.5-11.1); PLATELET COUNT 229 K/MM3 (134-434); RBC 4.46 M/mm3 (4.00-5.60); RDW 12.6 % (11.9-15.9); WHITE BLOOD COUNT 3.9 K/mm3 (4.0-10.0)
[2018-02-19 12:04] LABS: ANION GAP 8 MMOL/L (8-16); BLOOD UREA NITROGEN 10 mg/dL (7-18); CALCIUM 9.1 mg/dL (8.5-10.1); CHLORIDE 105 mmol/L (98-107); CO2 27 mmol/L (21-32); CREATININE 1.1 mg/dL (0.55-1.3); GLUCOSE,RANDOM 102 mg/dL (74-106); LIPASE 386 U/L (73-393); MAGNESIUM 2.1 mg/dL (1.8-2.4); POTASSIUM 4.7 mmol/L (3.5-5.1); SODIUM 140 mmol/L (136-145)
[2018-02-19] MEDS: DEXTROSE 5%-0.45% SALINE 1,000 ML IV SCH (12:54)
--- NOTE | 2018-02-19 20:52 | PN ---
Progress Note, Physician - Current Medication List Current Medications: Active Medications Heparin Sodium (Porcine) (Heparin -) 5,000 unit SQ TID [facility] [place] Last Admin: 02/19/18 14:50 Dose: 5,000 unit Dextrose/Sodium Chloride (D5-1/2ns -) 1,000 mls @ 75 mls/hr IV ASDIR [facility] [place] Last Admin: 02/19/18 12:54 Dose: 75 mls/hr Morphine Sulfate (Morphine Sulfate) 2 mg IVPUSH Q4H PRN PRN Reason: PAIN LEVEL 7 - 10 Ondansetron HCl (Zofran Injection) 4 mg IVPUSH Q6H PRN PRN Reason: NAUSEA AND/OR VOMITING Pantoprazole Sodium (Protonix Iv) 40 mg IVPUSH DAILY [facility] [place] Last Admin: 02/19/18 09:59 Dose: 40 mg - Objective Vital Signs: Vital Signs Temperature 98 F 02/19/18 16:30 Pulse Rate 91 H 02/19/18 16:30 Respiratory Rate 20 02/19/18 16:30 Blood Pressure 113/78 02/19/18 16:30 O2 Sat by Pulse Oximetry (%) 100 02/18/18 21:00 Labs: CBC, BMP 02/19/18 10:40 02/19/18 10:40
[2018-02-20] MEDS: DEXTROSE 5%-0.45% SALINE 1,000 ML IV SCH (03:22)
[2018-02-20] MEDS: HEPARIN NA (PORCINE) 5,000 UNITS/ML 1ML VIAL SQ SCH (05:45)
[2018-02-20] MEDS: PANTOPRAZOLE SODIUM 40 MG VIAL IVPUSH SCH (09:17)
[2018-02-20 09:39] LABS: BASO % 0.5 % (0-2.0); HEMATOCRIT 40.3 % (35.4-49); HEMOGLOBIN 13.2 GM/dL (11.7-16.9); MCH 28.3 pg (25.7-33.7); MCHC 32.7 g/dl (32.0-35.9); MEAN CELL VOLUME 86.4 fl (80-96); MEAN PLT VOLUME 8.3 fl (7.5-11.1); MONO % 10.5 % (3.8-10.2); PLATELET COUNT 227 K/MM3 (134-434); RBC 4.66 M/mm3 (4.00-5.60); RDW 12.7 % (11.9-15.9); WHITE BLOOD COUNT 4.8 K/mm3 (4.0-10.0)
[2018-02-20 10:41] LABS: ALK PHOS 77 U/L (45-117); AMYLASE 123 U/L (25-115); ANION GAP 9 MMOL/L (8-16); BILIRUBIN,TOTAL 0.4 mg/dL (0.2-1); BLOOD UREA NITROGEN 9 mg/dL (7-18); CALCIUM 9.2 mg/dL (8.5-10.1); CHLORIDE 108 mmol/L (98-107); CO2 24 mmol/L (21-32); CREATININE 1.1 mg/dL (0.55-1.3); GLUCOSE,RANDOM 130 mg/dL (74-106); LIPASE 435 U/L (73-393); POTASSIUM 3.8 mmol/L (3.5-5.1); SGOT/AST 24 U/L (15-37); SGPT/ALT 36 U/L (13-61); SODIUM 140 mmol/L (136-145); TOT PROT 7.7 g/dl (6.4-8.2)
[2018-02-20 11:43] VITALS: BP 167/97; PULSE 101; TEMP 98.3
== END 2018-02-20 11:34 | disposition home or self-care (01) | DRG 439 ==
LOC: JER 02:11 → JERBED 04:43 → J8W 09:43
PROVIDERS: ADMIT Internal Medicine; ATTEND Internal Medicine
DX: K85.80 Other acute pancreatitis without necrosis or infection (principal); C18.9 Malignant neoplasm of colon, unspecified; E11.9 Type 2 diabetes mellitus without complications; E78.5 Hyperlipidemia, unspecified; Z79.84 Long term (current) use of oral hypoglycemic drugs; K57.30 Diverticulosis of large intestine without perforation or abscess without bleeding
CPT/HCPCS: 36415; 70450-TC; 71045-TC-FY; 74176-TC; 74181-TC; 80048; 80053; 80061; 81003; 82009; 82150; 82272; 82550; 82553; 82962; 83036; 83690; 83721; 83735; 84484; 84703; 85025; 85027; 93005; 93010; 99284-25; J1644; J7030

== ENCOUNTER 2018-02-25 21:48 | Emergency (ER) | payer BC ==
[2018-02-25 22:02] VITALS: TEMP 98.5; BMI 27.4
--- NOTE | 2018-02-25 22:31 | PDOC ---
History of Present Illness - General Chief Complaint: Allergic Reaction Stated Complaint: Allergic Reaction Time Seen by Provider: 02/25/18 22:22 - History of Present Illness Initial Comments: The patient is a 52M w/ a history of HTN and T2DM who presents for 1d of b/l periorbital and maxillary lip swelling. Denies new foods/exposures. Denies SOB, dysphagia, odynophagia, chest pain. Patient on Lisinopril. Denies ever having had this before. Denies IBARRA, vision changes, changes in sensation, rash, itching. PCP: Dr. Garfield Hernadez 02/25/18 22:35 Past History - Past Medical History Allergies/Adverse Reactions: Allergies Allergy/AdvReac Type Severity Reaction Status Date / Time No Known Allergies Allergy Verified 02/25/18 22:02 Home Medications: Ambulatory Orders Sitagliptin Phos/Metformin HCl [Janumet 50-1,000 mg Tablet] 50 mg PO BIDAC 08/28 Lisinopril/Hydrochlorothiazide [Lisinopril-Hctz 20-12.5 mg Tab] 1 each PO DAILY 02/18/18 Diphenhydramine HCl [Benadryl -] 25 mg PO Q8H #21 capsule 02/26/18 Famotidine [Pepcid -] 20 mg PO DAILY #7 tablet 02/26/18 Prednisone [Deltasone] 20 mg PO DAILY 4 Days #8 tablet 02/26/18 Prednisone [Prednisone 50 MG TABLETS] 50 mg PO Q6H PRN 5 Days #20 tablet Cancer: Yes (COLON CA) Cardiac Disorders: Yes (HTN, HLD) COPD: No Diabetes: Yes HTN: Yes Hypercholesterolemia: Yes - Surgical History Abdominal Surgery: (COLON RESECTION 09/2017) - Immunization History Immunization Up to Date: Yes - Suicide/Smoking/Psychosocial Hx Smoking History: Never smoked Have you smoked in the past 12 months: No Hx Alcohol Use: No Drug/Substance Use Hx: No (SOCIAL DRINKER) Substance Use Type: Alcohol Hx Substance Use Treatment: No Review of Systems - Review of Systems Able to Perform ROS?: Yes Comments:: GENERAL/CONSTITUTIONAL: No fever or chills. No weakness HEAD, EYES, EARS, NOSE AND THROAT: No change in vision. No ear pain or discharge. CARDIOVASCULAR: No chest pain or shortness of breath GASTROINTESTINAL: No nausea, vomiting, diarrhea or constipation GENITOURINARY: No dysuria, frequency, or change in urination MUSCULOSKELETAL: No joint or muscle swelling or pain. No neck or back pain SKIN: No rash NEUROLOGIC: No headache, vertigo, loss of consciousness, or change in strength/ sensation ENDOCRINE: No increased thirst. No abnormal weight change HEMATOLOGIC/LYMPHATIC: No anemia, easy bleeding, or history of blood clots ALLERGIC/IMMUNOLOGIC: No hives or skin allergy 02/25/18 22:30 Is the patient limited Palestinian proficient: No *Physical Exam - Vital Signs Last Vital Signs Temp Pulse Resp BP Pulse Ox 98.5 F 102 H 20 143/90 100 02/25/18 21:59 02/25/18 21:59 02/25/18 21:59 02/25/18 21:59 02/25/18 21:59 - Physical Exam Comments: GENERAL: Awake, alert, and fully oriented, in no acute distress HEAD: No signs of trauma, normocephalic, atraumatic EYES: b/l periorbital edema; PERRLA, EOMI, sclera anicteric, conjunctiva clear ENT: Maxillary lip swelling. Mild uvula edema. Hearing grossly normal, nares patent, oropharynx clear without exudates. Moist mucosa LUNGS: No distress, speaks full sentences, clear to auscultation bilaterally HEART: Regular rate and rhythm, normal S1 and S2, no murmurs appreciated, peripheral pulses normal and equal bilaterally ABDOMEN: Soft, nontender, normoactive bowel sounds. No guarding, no rebound EXTREMITIES : Normal inspection, Normal range of motion, no edema. No clubbing or cyanosis NEUROLOGICAL: Cranial nerves II through XII grossly intact. Normal speech, normal gait, no focal sensorimotor deficits SKIN: Warm, Dry, normal turgor, no rashes or lesions noted 02/25/18 22:30 ED Treatment Course - LABORATORY CBC & Chemistry Diagram: 02/25/18 23:11 02/25/18 23:11 Medical Decision Making - Medical Decision Making The patient is a 52M who presents for evaluation of 1d of maxillary lip and b/l periorbital edema Likely angioedema -Currently breathing comfortably on room air and speaking in full sentences -CMP, CBC -CXR -Solumdrol 125mg IV once, Pepcid 20mg IV once, Benadryl 50mg IV once 02/25/18 22:31 No leukocytosis No anemia 02/25/18 23:47 lytes wnl no NEAL Symptoms improved. Denies throat discomfort. No difficulty breathing Plan for D/C and PCP f/u Rx prednisone, pepcid, benadryl 02/26/18 00:48 Plan discussed w/ patient who is in agreement and verbalized understanding Dispo: home 02/26/18 00:54 *DC/Admit/Observation/Transfer Diagnosis at time of Disposition: Angioedema Qualifiers: Encounter type: initial encounter Qualified Code(s): T78.3XXA - Angioneurotic edema, initial encounter - Discharge Dispostion Disposition: HOME Condition at time of disposition: Improved Decision to Admit order: No - Prescriptions Prescriptions: Diphenhydramine HCl [Benadryl -] 25 mg PO Q8H #21 capsule Famotidine [Pepcid -] 20 mg PO DAILY #7 tablet Prednisone [Prednisone 50 MG TABLETS] 50 mg PO Q6H PRN 5 Days #20 tablet PRN Reason: Swelling Prednisone [Deltasone] 20 mg PO DAILY 4 Days #8 tablet - Referrals Referrals: Garfield Hernadez MD [Primary Care Provider] - - Patient Instructions Printed Discharge Instructions: DI for Angioedema Additional Instructions: You were seen in the Emergency Department today for evaluation of angioedema. Please review then handout provided at discharge. Stop taking your Lisinopril. Call your primary care doctor in the morning to schedule an appointment to discuss modifying your regimen. Return to the Emergency Department if you develop trouble breathing, worsening swelling, difficulty swallowing, worsening symptoms, or any new/concerning symptoms. - Post Discharge Activity
[2018-02-25] MEDS ORDERED: methylPREDNISolone NA SUCC 125 MG/2 ML VIAL IVPB ONE (22:50)
[2018-02-25] MEDS ORDERED: FAMOTIDINE 20 MG/50 ML IVPB 20 MG/50 ML MG IVPB ONE ×2 (22:50→23:40)
[2018-02-25 23:21] LABS: HEMATOCRIT 38.2 % (35.4-49); HEMOGLOBIN 13.2 GM/dL (11.7-16.9); MCH 29.5 pg (25.7-33.7); MCHC 34.4 g/dl (32.0-35.9); MEAN CELL VOLUME 85.7 fl (80-96); MEAN PLT VOLUME 8.3 fl (7.5-11.1); PLATELET COUNT 255 K/MM3 (134-434); RBC 4.45 M/mm3 (4.00-5.60); RDW 12.8 % (11.9-15.9); WHITE BLOOD COUNT 6.2 K/mm3 (4.0-10.0)
[2018-02-25] MEDS ORDERED: methylPREDNISolone NA SUCC 125 MG/2 ML VIAL ONE (23:39)
--- NOTE | 2018-02-25 23:47 | PDOC ---
Attending Attestation - HPI HPI: 02/25/18 23:58 52 y/o male with a history of HTN, colon ca s/p resection, and diabetes who presents to the emergency department for evaluation of a 1 day history of neck pain. Pt endorses periorbital and lip swelling. PCP: Dr. Garfield Hernadez <David Avalos - Last Filed: 02/25/18 23:58> - Resident Resident Name: Benji Genao - ED Attending Attestation I have performed the following: I have examined & evaluated the patient, The case was reviewed & discussed with the resident, I agree w/resident's findings & plan, Exceptions are as noted - Physicial Exam PE: 02/26/18 00:14 wnwd 52 yo male p/w angioedema, periorbital swelling head ncat eyes eduardo oemi, mildly swollen eyelids neck supple orapharynx uvula is midline, sl swelling lungs no wheezing, good air mvmt abd nontender ext no edema skin no hives neuro axox3,ambulatory psych appropriate - Medical Decision Making 02/26/18 00:18 pt has been taking lisinopril for 10 years and this is the first time he has experienced angioedema 02/26/18 16:27 pt DID NOT have c/o diff swallowing,"scratchy throat", he had no wheezing 02/26/18 16:29 symptoms improved pt d/c home <Aretha Holder - Last Filed: 02/26/18 16:30> Attestations - Attestations Documentation prepared by David Avalos, acting as medical claims examiner for Aretha Holder MD. <David Avalos - Last Filed: 02/25/18 23:58>
[2018-02-25 23:51] LABS: ALBUMIN 3.9 g/dl (3.4-5.0); ALK PHOS 104 U/L (45-117); ANION GAP 7 MMOL/L (8-16); BILIRUBIN,TOTAL 0.2 mg/dL (0.2-1); BLOOD UREA NITROGEN 16 mg/dL (7-18); CALCIUM 9.5 mg/dL (8.5-10.1); CHLORIDE 102 mmol/L (98-107); CO2 29 mmol/L (21-32); CREATININE 1.3 mg/dL (0.55-1.3); GLUCOSE,RANDOM 128 mg/dL (74-106); POTASSIUM 4.6 mmol/L (3.5-5.1); SGOT/AST 26 U/L (15-37); SGPT/ALT 47 U/L (13-61); SODIUM 138 mmol/L (136-145)
[2018-02-26 01:01] VITALS: BP 129/89; PULSE 86
== END 2018-02-26 01:11 | disposition home or self-care (01) ==
LOC: JER 21:48
PROC: 3E033GC Introduction of Other Therapeutic Substance into Peripheral Vein, Percutaneous Approach (ICD-10-PCS; principal; 2018-02-25)
PROC: 3E033GC Introduction of Other Therapeutic Substance into Peripheral Vein, Percutaneous Approach (ICD-10-PCS; 2018-02-25)
PROC: 3E0333Z Introduction of Anti-inflammatory into Peripheral Vein, Percutaneous Approach (ICD-10-PCS; 2018-02-25)
DX: T78.3XXA Angioneurotic edema, initial encounter (principal)
CPT/HCPCS: 36415; 80053; 85027; 99282-25

== ENCOUNTER 2018-03-03 14:18 | Emergency (ER) | payer BC ==
[2018-03-03 14:27] VITALS: TEMP 98.8; BMI 27.4
--- NOTE | 2018-03-03 14:39 | PDOC ---
History of Present Illness - General Chief Complaint: Blood Sugar Problem Stated Complaint: DIABETES, HIGH SUGAR & BP Time Seen by Provider: 03/03/18 14:33 - History of Present Illness Initial Comments: 03/03/18 16:01 Patient is a 52 year old male with past medical history of Colon CA (s/p resection September 2017), HTN, HLD and DM, presented with elevated blood pressure and blood sugar measurements from home this morning. Patient was recently seen at the on 02/25, where he was diagnosed with angioedema. He was sent home on Prednisone 20 mg daily as needed for 5 days, was told to stop taking the Lisinopril and instructed to follow-up with PCP, which he did 2 days ago. At the PCP's office, BP was 140/90 and patient was sent home without prescription for blood pressure. Patient continued to take the Famotidine as he thought it was his blood pressure pill, as well as the prednisone. Today, patient came in because he noted BP was 200/100 and blood sugar 282 (30 mins post prandial). He added his blood sugar this morning was 194. Denies any headache, dizziness, fever, chills, chest pain, palpitations, SOB, abdominal pain, diarrhea, constipation, and urinary symptoms. Past History - Past Medical History Allergies/Adverse Reactions: Allergies Allergy/AdvReac Type Severity Reaction Status Date / Time No Known Allergies Allergy Verified 03/03/18 14:26 Home Medications: Ambulatory Orders Sitagliptin Phos/Metformin HCl [Janumet 50-1,000 mg Tablet] 50 mg PO BIDAC 08/28 Lisinopril/Hydrochlorothiazide [Lisinopril-Hctz 20-12.5 mg Tab] 1 each PO DAILY 02/18/18 Diphenhydramine HCl [Benadryl -] 25 mg PO Q8H #21 capsule 02/26/18 Famotidine [Pepcid -] 20 mg PO DAILY #7 tablet 02/26/18 Prednisone [Deltasone] 20 mg PO DAILY 4 Days #8 tablet 02/26/18 Prednisone [Prednisone 50 MG TABLETS] 50 mg PO Q6H PRN 5 Days #20 tablet Cancer: Yes (COLON CA) Cardiac Disorders: Yes (HTN, HLD) COPD: No Diabetes: Yes HTN: Yes Hypercholesterolemia: Yes - Surgical History Abdominal Surgery: (COLON RESECTION 09/2017) - Immunization History Immunization Up to Date: Yes - Suicide/Smoking/Psychosocial Hx Smoking History: Never smoked Have you smoked in the past 12 months: No Hx Alcohol Use: No Drug/Substance Use Hx: No (SOCIAL DRINKER) Substance Use Type: Alcohol Hx Substance Use Treatment: No Review of Systems - Review of Systems Constitutional: No: Chills, Fever, Malaise, Weakness HEENTM: No: Blurred Vision, Nose Pain, Nose Congestion, Throat Pain, Difficulty Swallowing Respiratory: No: Cough, Orthopnea, Shortness of Breath Cardiac (ROS): No: Chest Pain, Lightheadedness, Palpitations ABD/GI: No: Abdominal Distended, Constipated, Diarrhea, Nausea, Rectal Bleeding , Vomiting : No: Burning, Dysuria Neurological: No: Headache, Numbness, Tingling, Tremors, Weakness *Physical Exam - Vital Signs Last Vital Signs Temp Pulse Resp BP Pulse Ox 98.8 F 114 H 20 159/99 99 03/03/18 14:24 03/03/18 14:24 03/03/18 14:24 03/03/18 14:24 03/03/18 14:24 - Physical Exam Comments: 03/03/18 16:01 General: awake, alert, oriented, not in acute distress Head: no signs of acute trauma HEENT:PERRLA, EOMI, sclerae anicteric, no nasal discharge, non-erythematous oropharynx, moist mucous membranes Neck:soft, supple, trachea midline Lung:clear to auscultation bilaterally Heart:regular rate and rhythm, normal S1/S2, no m,r,g Abdomen:soft, nontender, nondistended, NABS Ext: +2 pulses, no peripheral edema Neuro: AAOx3, CN II-XII intact, motor strength 5/5, sensation intact, normal gait Moderate Sedation - Procedure Monitoring Vital Signs: Procedure Monitoring Vital Signs Temperature 98.8 F 03/03/18 14:24 Pulse Rate 114 H 03/03/18 14:24 Respiratory Rate 20 03/03/18 14:24 Blood Pressure 159/99 03/03/18 14:24 O2 Sat by Pulse Oximetry (%) 99 03/03/18 14:24 ED Treatment Course - LABORATORY CBC & Chemistry Diagram: 03/03/18 16:15 03/03/18 16:15 Medical Decision Making - Medical Decision Making 03/03/18 14:49 Patient is a 52 year old male with past medical history of Colon CA (s/p resection September 2017), HTN, HLD and DM, presented with elevated blood pressure and blood sugar measurements from home this morning. Patient was recently seen at the on 02/25, where he was diagnosed with angioedema. He was sent home on Prednisone 20 mg daily as needed for 5 days, was told to stop taking the Lisinopril and instructed to follow-up with PCP, which he did 2 days ago. At the PCP's office, BP was 140/90 and patient was sent home without prescription for blood pressure. Patient continued to take the Famotidine as he thought it was his blood pressure pill, as well as the prednisone. Today, patient came in because he noted BP was 200/100 and blood sugar 282 (30 mins post prandial). He added his blood sugar this morning was 194. Denies any headache, dizziness, fever, chills, chest pain, palpitations, SOB, abdominal pain, diarrhea, constipation, and urinary symptoms. General: awake, alert, oriented, not in acute distress Head: no signs of acute trauma HEENT:PERRLA, EOMI, sclerae anicteric, no nasal discharge, non-erythematous oropharynx, moist mucous membranes Neck:soft, supple, trachea midline Lung:clear to auscultation bilaterally Heart:regular rate and rhythm, normal S1/S2, no m,r,g Abdomen:soft, nontender, nondistended, NABS Ext: +2 pulses, no peripheral edema Neuro: AAOx3, CN II-XII intact, motor strength 5/5, sensation intact, normal gait DDx include but not limited to Hypertension, hyperglycemia 2/2 prednisone use, DKA CBC, CMP BGM, Acetone UA 03/03/18 17:00 BGM 312 Novolog 5 units once *DC/Admit/Observation/Transfer Diagnosis at time of Disposition: Hypertension Qualifiers: Hypertension type: essential hypertension Qualified Code(s): I10 - Essential ( primary) hypertension Diabetes Qualifiers: Diabetes mellitus type: type 2 - Discharge Dispostion Disposition: HOME Condition at time of disposition: Stable Decision to Admit order: No - Referrals Referrals: Garfield Hernadez MD [Primary Care Provider] - - Patient Instructions Printed Discharge Instructions: Essential Hypertension, DI for Hyperglycemia - - Adult Additional Instructions: You were seen because you had elevated blood pressure and blood sugar. Tests were done which were negative of any emergent concerns. Your elevated blood pressure is likely because you haven't taken any blood pressure pills since you stopped taking the Lisinopril tablets. Please follow- up with Dr. Hernadez to discuss with him medications your should take for blood pressure. Your elevated blood sugar was likely caused by the prednisone you were taking for the allergy. Please STOP taking the Prednisone tablets. Follow-up with your primary care doctor within [address] Hernadez know you haven't been taking any of your blood pressure pills. Call 911 or go to the ED if with any worsening fever, chills, chest pain, shortness of breath, headaches, nausea, vomiting or any new concerns noted. - Post Discharge Activity
--- NOTE | 2018-03-03 14:45 | PDOC ---
Attending Attestation - Resident Resident Name: Martha Monroy - ED Attending Attestation I have performed the following: I have examined & evaluated the patient, The case was reviewed & discussed with the resident, I agree w/resident's findings & plan - HPI HPI: 03/03/18 16:57 52YOM with a significant past medical history of HLD, HTN, colon ca (s/p resection 08/2017), and diabetes, who presents to the emergency department with , elevated blood glucose (282) and blood pressure readings (200/100). Patient was seen 02/25/18 in the ED and diagnosed with angioedema, placed on Prednisone , and advised to come off of Lisinopril (while on Prednisone) follow up with his PCP. c/o increased urination, nausea, dizziness. He denies any recent fevers, chills, headache or dizziness. He denies any recent nausea, vomit, diarrhea or constipation. He denies any recent chest pain or shortness of breath. He denies any recent dysuria, frequency, urgency or hematuria. Allergies: NKDA Primary Care Physician: Dr. Garfield Hernadez - Physicial Exam PE: 03/03/18 16:17 NAD, well appearing, PERRL, EOMI, MMM, nl conjunctiva, anicteric; neck supple. lungs clear, RRR, abdomen soft nontender. BURGESS x4, no focal neuro deficits. No peripheral edema. normal color for ethnicity, WWP. no calf tenderness. 03/03/18 16:17 - Medical Decision Making 03/03/18 16:16 I, Shyanne Mejia MD, attest that this document has been prepared under my direction and personally reviewed by me in its entirety. I further attest, that it accurately reflects all work, treatment, procedures and medical decision -making performed by me. See HPI for details 52M w/ a history of HTN and T2DM, HLD, colon ca in remission 200/100, 282 fingerstick Told to stop lisinopril on last visit 02/25/18. 2/2 angioedema. Also placed on steroids at that time. Vital signs reviewed, tachycardia initially noted, but NAD and well appearing, nontoxic. Prior notes reviewed, including admissions, discharges and consultations. laboratory results and imaging reviewed, basic labs and lytes with baseline Cr, 1.4. UA prelim neg for infection, elevated glucose >300s, given insulin inj SQ here. leukocytosis noted, but was recently on steroids so likely related to that. r.o DKA, checking acetone. dispo pending labs and reeval likely HTN and hyperglycemia 2/2 recent steroid use, told to avoid in the future. as it can precipitate deranged glycemic control diabetic diet compliance reviewed, avoid precipitants. 03/03/18 16:59 03/03/18 17:01 <Shyanne Mejia - Last Filed: 03/03/18 17:01> Attestations - Attestations 03/03/18 16:49 Documentation prepared by Oralia Tam, acting as medical office scheduler for Shaynne Mejia MD. <Oralia aTm - Last Filed: 03/03/18 16:49> - Attestations Physician Attestation: 03/03/18 17:00 I, Shyanne Mejia MD, attest that this document has been prepared under my direction and personally reviewed by me in its entirety. I further attest, that it accurately reflects all work, treatment, procedures and medical decision -making performed by me. 03/03/18 17:01 <Shyanne Mejia - Last Filed: 03/03/18 17:01>
[2018-03-03 16:21] LABS: BASO % 0.5 % (0-2.0); HEMATOCRIT 37.1 % (35.4-49); HEMOGLOBIN 12.9 GM/dL (11.7-16.9); LYMPH % 8.7 % (8-40); MCH 29.2 pg (25.7-33.7); MCHC 34.7 g/dl (32.0-35.9); MEAN CELL VOLUME 84.2 fl (80-96); MONO % 2.9 % (3.8-10.2); NEUT % 87.9 % (42.8-82.8); PLATELET COUNT 362 K/MM3 (134-434); RBC 4.41 M/mm3 (4.00-5.60); RDW 12.9 % (11.9-15.9)
[2018-03-03 16:38] LABS: URINE APPEARANCE CLEAR; URINE BILIRUBIN NEGATIVE (<2.0 mg/dL); URINE COLOR COLORLESS; URINE GLUCOSE (UA) 3+ (NEGATIVE); URINE KETONE NEGATIVE (NEGATIVE); URINE LEUK ESTERASE NEGATIVE (NEGATIVE); URINE NITRITE NEGATIVE (NEGATIVE); URINE PROTEIN NEGATIVE (NEGATIVE); URINE UROBILINOGEN NEGATIVE mg/dL (0.2-1.0)
[2018-03-03 16:47] LABS: ALBUMIN 3.8 g/dl (3.4-5.0); ALK PHOS 117 U/L (45-117); ANION GAP 10 MMOL/L (8-16); BILIRUBIN,TOTAL 0.2 mg/dL (0.2-1); BLOOD UREA NITROGEN 14 mg/dL (7-18); CALCIUM 9.7 mg/dL (8.5-10.1); CHLORIDE 101 mmol/L (98-107); CO2 27 mmol/L (21-32); CREATININE 1.4 mg/dL (0.55-1.3); GLUCOSE,RANDOM 289 mg/dL (74-106); POTASSIUM 5.5 mmol/L (3.5-5.1); SGOT/AST 14 U/L (15-37); SGPT/ALT 40 U/L (13-61); SODIUM 138 mmol/L (136-145); TOT PROT 7.7 g/dl (6.4-8.2)
[2018-03-03] MEDS ORDERED: Insulin (LOG) Aspart 100 UNITS/ML VIAL SQ ONE (16:55)
[2018-03-03] MEDS ORDERED: INSULIN (NOVOLOG) ASPART 100 UNITS/ML 10ML VIAL ONE (17:12)
[2018-03-03 18:54] VITALS: BP 143/83; PULSE 92
--- NOTE | 2018-03-04 11:16 | EKG ---
Test Reason : Blood Pressure : / mmHG Vent. Rate : 095 BPM Atrial Rate : 095 BPM P-R Int : 160 ms QRS Dur : 084 ms QT Int : 322 ms P-R-T Axes : 078 041 -08 degrees QTc Int : 404 ms NORMAL SINUS RHYTHM RIGHT ATRIAL ENLARGEMENT NONSPECIFIC T WAVE ABNORMALITY ABNORMAL ECG WHEN COMPARED WITH ECG OF 18-FEB-2018 03:01, NO SIGNIFICANT CHANGE WAS FOUND Confirmed by MILKA VANCE MD ([id number]) on 03/04/2018 11:16:14 AM Referred By: Confirmed By:MILKA VANCE MD
[2018-03-04] MEDS ORDERED: Insulin (LOG) Aspart 100 UNITS/ML VIAL SQ ONE (16:55)
== END 2018-03-03 18:15 | disposition home or self-care (01) ==
LOC: JER 14:18
PROC: 3E033VG Introduction of Insulin into Peripheral Vein, Percutaneous Approach (ICD-10-PCS; principal; 2018-03-03)
DX: I10 Essential (primary) hypertension (principal); Z85.038 Personal history of other malignant neoplasm of large intestine; E78.5 Hyperlipidemia, unspecified; E11.9 Type 2 diabetes mellitus without complications
CPT/HCPCS: 36415; 80053; 81003; 82009; 82962; 85025; 93005; 93010; 99282-25

== ENCOUNTER 2019-12-29 13:25 | Observation (INO) | payer BC ==
--- NOTE | 2019-12-29 13:45 | PDOC ---
History of Present Illness - General Chief Complaint: Chest Pain Stated Complaint: CHEST PAIN Time Seen by Provider: 12/29/19 13:44 - History of Present Illness Initial Comments: 54 YOM h/o hld, htn, diabetes, colon cancer presents from primary care for chest pain. Pain was initially 9/10, located on left side, radiation to back, took aspirin and nitroglycerin with some relief. Pain is reproducible to palpation. Denies SOB, N/V/D, fever, chills, cough, recent sick contacts or travel. Constitutional: No Weight Change, No Fever, No Chills, No Night Sweats, No Fatigue, No Malaise ENT/Mouth: No Hearing Changes, No Ear Pain, No Nasal Congestion, No Sinus Pain, No Hoarseness, No sore throat, No Rhinorrhea, No Swallowing Difficulty Eyes: No Eye Pain, No Swelling, No Redness, No Foreign Body, No Discharge, No Vision Changes Cardiovascular: + Chest Pain, No SOB, No PND, No Dyspnea on Exertion, No Orthopnea, No Claudication, No Edema, No Palpitations Respiratory: No Cough, No Sputum, No Wheezing, No Smoke Exposure, No Dyspnea Gastrointestinal: No Nausea, No Vomiting, No Diarrhea, No Constipation, No Pain, No Heartburn, No Anorexia, No Dysphagia, No Hematochezia, No Melena, No Flatulence, No Jaundice Genitourinary: No Dysmenorrhea, No DUB, No Dyspareunia, No Dysuria, No Urinary Frequency, No Hematuria, No Urinary Incontinence, No Urgency, No Flank Pain, No Urinary Flow Changes, No Hesitancy Musculoskeletal: No Arthralgias, No Myalgias, No Joint Swelling, No Joint Stiffness, + Back Pain, No Neck Pain, No Injury History Skin: No Skin Lesions, No Pruritis, No Hair Changes, No Breast/Skin Changes, No Nipple Discharge Neuro: No Weakness, No Numbness, No Paresthesias, No Loss of Consciousness, No Syncope, No Dizziness, No Headache, No Coordination Changes, No Recent Falls Psych: No Anxiety/Panic, No Depression, No Insomnia, No Personality Changes, No Delusions, No Rumination, No SI/HI/AH/VH, No Social Issues, No Memory Changes, No Violence/Abuse Hx., No Eating Concerns Heme/Lymph: No Bruising, No Bleeding, No Transfusions History, No Lymphadenopathy Endocrine: No Polyuria, No Polydipsia, No Temperature Intolerance Past History - Medical History Allergies/Adverse Reactions: Allergies Allergy/AdvReac Type Severity Reaction Status Date / Time No Known Allergies Allergy Verified 03/03/18 14:26 Home Medications: Ambulatory Orders Sitagliptin Phos/Metformin HCl [Janumet 50-1,000 mg Tablet] 50 mg PO BIDAC 08/28/16 Lisinopril/Hydrochlorothiazide [Lisinopril-Hctz 20-12.5 mg Tab] 1 each PO DAILY 02/18/18 Famotidine [Pepcid -] 20 mg PO DAILY #7 tablet 02/26/18 Cancer: Yes (COLON CA) Cardiac Disorders: Yes (HTN, HLD) COPD: No Diabetes: Yes HTN: Yes Hypercholesterolemia: Yes - Surgical History Abdominal Surgery: (COLON RESECTION 09/2017) - Immunization History Immunization Up to Date: Yes - Psycho-Social/Smoking History Smoking History: Never smoked Have you smoked in the past 12 months: No Information on smoking cessation initiated: No - Substance Abuse Hx (Audit-C & DAST Scrn) How often the patient has a drink containing alcohol: Never Score: In Men: 4 or > Positive; In Women: 3 or > Positive: 0 Screen Result (Pos requires Nsg. Audit-10AR): Negative In the last yr the pt used illegal drug/Rx for NonMed reason: No Score: Yes response is considered Positive: 0 Screen Result (Positive result requires Nsg. DAST-10): Negative *Physical Exam - Vital Signs Last Vital Signs Temp Pulse Resp BP Pulse Ox 98.2 F 84 18 154/102 H 100 12/29/19 13:39 12/29/19 13:33 12/29/19 13:33 12/29/19 13:33 12/29/19 13:33 - Physical Exam General Appearance: Yes: Nourished, Appropriately Dressed, Mild Distress HEENT: positive: EOMI, RENUKA, Normal ENT Inspection, Normal Voice, Symmetrical, TMs Normal Neck: positive: Trachea midline, Normal Thyroid Respiratory/Chest: positive: Lungs Clear, Normal Breath Sounds Cardiovascular: positive: Regular Rhythm, Regular Rate, S1, S2 Gastrointestinal/Abdominal: positive: Normal Bowel Sounds, Flat, Soft Musculoskeletal: positive: Normal Inspection, Other (pain in chest and back is reproducible to palpation) Extremity: positive: Normal Capillary Refill, Normal Inspection, Normal Range of Motion, Pelvis Stable ED Treatment Course - LABORATORY CBC & Chemistry Diagram: 12/30/19 06:23 12/30/19 06:23 Medical Decision Making - Medical Decision Making 54 YOM sent from [facility] for chest and back pain - vitals wnl - chest and back pain reproducible, bilateral radial pulses palpable, blood pressure of left and right arms within 10mmHg of each other - cbc, cmp, troponin, CXR, EKG - labs wnl, cxr and ekg unremarkable, troponin negative - heart score 4 - will admit given CP and multiple risk factors Discharge - Discharge Information Problems reviewed: Yes Clinical Impression/Diagnosis: Chest pain Condition: Good Disposition: HOME - Follow up/Referral - Patient Discharge Instructions - Post Discharge Activity
[2019-12-29 14:20] LABS: BASO % 0.6 % (0-2.0); EOS % 1.2 % (0-4.5); HEMATOCRIT 45.2 % (35.4-49); HEMOGLOBIN 14.9 GM/dL (11.7-16.9); LYMPH % 40.3 % (8-40); MCH 28.4 pg (25.7-33.7); MONO % 8.5 % (3.8-10.2); NEUT % 49.4 % (42.8-82.8); PLATELET COUNT 246 K/MM3 (134-434); RBC 5.26 M/mm3 (4.00-5.60); RDW 13.9 % (11.9-15.9); WHITE BLOOD COUNT 4.9 K/mm3 (4.0-10.0)
[2019-12-29 14:29] LABS: INR 1.05 (0.83-1.09); PROTHROMBIN TIME (PATIENT) 12.4 SEC (9.7-13.0)
[2019-12-29 14:32] LABS: ACTIVATED PTT 34.6 SECONDS (25.2-36.5)
--- NOTE | 2019-12-29 14:45 | PDOC ---
Documentation entered by Pia Davis SCRIBE, acting as scribe for Ayaan Anderson MD. Ayaan Anderson MD: This documentation has been prepared by the Susan snyder Xhesika, SCRIBE, under my direction and personally reviewed by me in its entirety. I confirm that the documentation accurately reflects all work, treatment, procedures, and medical decision making performed by me. Attending Attestation - Resident Resident Name: Amador Dubois - ED Attending Attestation I have performed the following: I have examined & evaluated the patient, The case was reviewed & discussed with the resident, I agree w/resident's findings & plan, Exceptions are as noted - HPI HPI: 12/29/19 13:53 The patient is a 54y/o M with a significant past medical history of HLD, HTN, DM, colon ca (s/p resection 08/2017), and diabetes, who presents to the emergency department with from PMD office for chest pain x3 days. Pt states his CP is L sided, sharp in nature, radiating to his back, and reproducible to palpation. Pt states he was given aspirin and nitroglycerin at PMD office with mild relief of symptoms. The patient denies shortness of breath, headache and dizziness. Denies fever, chills, cough, nausea, vomiting, diarrhea and constipation. Allergies: NKDA Primary Care Physician: Dr. Garfield Hernadez - Physicial Exam PE: 12/29/19 15:12 See resident exam - Medical Decision Making 12/29/19 15:12 54 M with chest pain. EKG with no acute ischemic changes. No PE risk factors. Dissection unlikely given equal pulses bilaterally - Labs, trop - CXR Heart Score/ECG Review - History History: Slightly suspicious - Electrocardiogram EKG: Non specific repolarization disturbance - Age Age: 45-65 - Risk Factors Risk Factors Heart Score: Yes Hx Hypercholesterolemia, Yes Hx Hypertension, Yes Hx Diabetes Based on the list above the patient has:: >/=3 risk factors or Hx atherosclerotic disease - Troponin Troponin: </= normal limit - Score Heart Score - Total: 4 Discharge - Discharge Information Problems reviewed: Yes Clinical Impression/Diagnosis: Chest pain Condition: Good Disposition: HOME - Follow up/Referral - Patient Discharge Instructions - Post Discharge Activity
[2019-12-29 14:50] LABS: ALBUMIN 4.6 g/dl (3.4-5.0); ALK PHOS 112 U/L (45-117); ANION GAP 7 MMOL/L (8-16); BILIRUBIN,TOTAL 0.5 mg/dL (0.2-1); BLOOD UREA NITROGEN 9.2 mg/dL (7-18); CALCIUM 10.1 mg/dL (8.5-10.1); CHLORIDE 105 mmol/L (98-107); CO2 27 mmol/L (21-32); CREATININE 1.1 mg/dL (0.55-1.3); GLUCOSE,RANDOM 115 mg/dL (74-106); POTASSIUM 4.2 mmol/L (3.5-5.1); SGOT/AST 29 U/L (15-37); SGPT/ALT 45 U/L (13-61); SODIUM 138 mmol/L (136-145)
--- NOTE | 2019-12-29 19:53 | HP ---
Admitting History and Physical - Primary Care Physician PCP: Katalina Traore - Admission Chief Complaint: chest pain History of Present Illness: 54y/o M with a significant past medical history of HLD, HTN, DM, colon ca (s/p resection 08/2017), and diabetes, who presents to the emergency department with from PMD office for chest pain x3 days. Pt states his CP is L sided, sharp in nature, radiating to his back, and reproducible to palpation. Pt states he was given aspirin and nitroglycerin at PMD office with mild relief of symptoms. The patient denies shortness of breath, headache and dizziness. Denies fever, chills, cough, nausea, vomiting, diarrhea and constipation. - Past Medical History Cardiovascular: Yes: HTN, Hyperlipdemia Endocrine: Yes: Diabetes Mellitus - Smoking History Smoking history: Never smoked Have you smoked in the past 12 months: No - Alcohol/Substance Use Hx Alcohol Use: No Home Medications - Allergies Allergies/Adverse Reactions: Allergies Allergy/AdvReac Type Severity Reaction Status Date / Time No Known Allergies Allergy Verified 03/03/18 14:26 - Home Medications Home Medications: Ambulatory Orders Sitagliptin Phos/Metformin HCl [Janumet 50-1,000 mg Tablet] 50 mg PO BIDAC 08/28/16 Lisinopril/Hydrochlorothiazide [Lisinopril-Hctz 20-12.5 mg Tab] 1 each PO DAILY 02/18/18 Famotidine [Pepcid -] 20 mg PO DAILY #7 tablet 02/26/18 Review of Systems - Review of Systems Cardiovascular: reports: Chest Pain Physical Examination Vital Signs: Vital Signs Temperature 98.2 F 12/29/19 18:30 Pulse Rate 81 12/29/19 18:30 Respiratory Rate 20 12/29/19 18:30 Blood Pressure 128/75 12/29/19 18:30 O2 Sat by Pulse Oximetry (%) 100 12/29/19 18:30 Constitutional: Yes: No Distress HENT: Yes: Atraumatic Neck: Yes: Supple Cardiovascular: Yes: Regular Rate and Rhythm Respiratory: Yes: Rhonchi Gastrointestinal: Yes: Normal Bowel Sounds Extremities: Yes: WNL Edema: No Neurological: Yes: Alert, Oriented Labs: CBC, BMP 12/29/19 13:50 12/29/19 13:50 Imaging - Results X-ray: Report Reviewed Problem List - Problems (1) Chest pain Assessment/Plan: tele monitoring serial cardiac enzymes cardiology consult Code(s): R07.9 - CHEST PAIN, UNSPECIFIED (2) Hypertension Assessment/Plan: on meds monitor Code(s): I10 - ESSENTIAL (PRIMARY) HYPERTENSION (3) Diabetes Assessment/Plan: bgms po meds Code(s): E11.9 - TYPE 2 DIABETES MELLITUS WITHOUT COMPLICATIONS Assessment/Plan Laboratory Tests 12/29/19 12/29/19 12/29/19 13:50 13:50 13:50 WBC 4.9 RBC 5.26 Hgb 14.9 Hct 45.2 D MCV 86.0 MCH 28.4 MCHC 33.0 RDW 13.9 Plt Count 246 D MPV 9.0 D Absolute Neuts (auto) 2.4 Neutrophils % 49.4 D Lymphocytes % 40.3 H D Monocytes % 8.5 D Eosinophils % 1.2 D Basophils % 0.6 Nucleated RBC % 0 PT with INR 12.40 INR 1.05 PTT (Actin FS) 34.6 Sodium 138 Potassium 4.2 Chloride 105 Carbon Dioxide 27 Anion Gap 7 L BUN 9.2 Creatinine 1.1 Est GFR (CKD-EPI)AfAm 88.36 Est GFR (CKD-EPI)NonAf 76.24 Random Glucose 115 H Calcium 10.1 Total Bilirubin 0.5 AST 29 ALT 45 Alkaline Phosphatase 112 Troponin I < 0.02 Total Protein 9.0 H Albumin 4.6 Active Medications Generic Name Dose Route Start Last Admin Trade Name Freq PRN Reason Stop Dose Admin Famotidine 20 mg 12/30/19 10:00 Pepcid - PO DAILY EN[facility] Non-Formulary Medication 50 mg 12/30/19 07:00 Sitagliptin Phos/Metformin Hcl [Janumet 50-1,000 Mg Tablet] PO BIDAC ENOC Non-Formulary Medication 1 each 12/30/19 10:00 Lisinopril/Hydrochlorothiazide [Lisinopril-Hctz 20-12.5 Mg Tab] PO DAILY [facility] COVERING FOR DR TRAORE TODAY
--- OUTSIDE RECORDS SUMMARY | 2019-12-29 20:56 | XMS ---
:1965 Author Organization [facility] Support Name Relationship Address Phone SE Unavailable Unavailable Unavailable DESIRAE BERMUDEZ [address] [place] [address] Re-disclosure Warning The records that you are about to access may contain information from federally- assisted alcohol or drug abuse programs. If such information is present, then the following federally mandated warning applies: This information has been disclosed to you from records protected by federal confidentiality rules (42 CFR part 2). The federal rules prohibit you from making any further disclosure of this information unless further disclosure is expressly permitted by the written consent of the person to whom it pertains or as otherwise permitted by 42 CFR part 2. A general authorization for the release of medical or other information is NOT sufficient for this purpose. The Federal rules restrict any use of the information to criminally investigate or prosecute any alcohol or drug abuse patient.The records that you are about to access may contain highly sensitive health information, the redisclosure of which is protected by Article 27-F of the [facility] Public Health law. If you continue you may haveaccess to information: Regarding HIV / AIDS; Provided by facilities licensed or operated by the [facility] Office of Mental Health; or Provided by the [facility] Office for People With Developmental Disabilities. If such information is present, then the following [facility] mandated warning applies: This information has been disclosed to you from confidential records which are protected by state law. State law prohibits you from making any further disclosure of this information without the specific written consent of the person to whom it pertains, or as otherwise permitted by law. Any unauthorized further disclosure in violation of state law may result in a fine or mcc sentence or both. A general authorization for the release of medical or other information is NOT sufficient authorization for further disclosure. Insurance Providers Payer name Policy type / Policy ID Covered Covered libertarian's Policy Plan Coverage type libertarian ID relationship to Riz[employer] Information rizvi BC EPO [id number] SP [id number] BC EPO [id number] S [id number]
[2019-12-30 00:38] VITALS: BMI 27.3
[2019-12-30] MEDS ORDERED: PNEUMOC 13-VAL CONJ-DIP CRM/PF 0.5 ML DISP.SYRIN IM ONE (06:00)
[2019-12-30] MEDS: sitaGLIPtin PHOSPHATE 50 MG TABLET PO SCH ×2 (06:22→17:19)
[2019-12-30] MEDS: INSULIN SLIDING SCALE (NOVOLOG) 1 VIAL SQ SCH ×3 (06:22→17:17)
[2019-12-30] MEDS: metFORMIN HCL 500 MG TABLET (FP) PO SCH ×2 (06:22→17:19)
[2019-12-30] MEDS ORDERED: PATIENT'S OWN MEDICATION (NON-FORMULARY) (Sitagliptin Phos/Metformin Hcl [Janumet 50-1,000 PO SCH (07:00)
[2019-12-30 07:15] LABS: BASO % 0.6 % (0-2.0); EOS % 1.9 % (0-4.5); HEMATOCRIT 40.3 % (35.4-49); HEMOGLOBIN 13.5 GM/dL (11.7-16.9); LYMPH % 48.3 % (8-40); MCH 28.7 pg (25.7-33.7); MCHC 33.6 g/dl (32.0-35.9); MEAN CELL VOLUME 85.6 fl (80-96); MEAN PLT VOLUME 8.8 fl (7.5-11.1); MONO % 9.6 % (3.8-10.2); NEUT % 39.6 % (42.8-82.8); PLATELET COUNT 226 K/MM3 (134-434); RBC 4.71 M/mm3 (4.00-5.60); RDW 13.8 % (11.9-15.9)
[2019-12-30 07:39] LABS: ALBUMIN 3.8 g/dl (3.4-5.0); BILIRUBIN,TOTAL 0.6 mg/dL (0.2-1); BLOOD UREA NITROGEN 10.4 mg/dL (7-18); CALCIUM 9.4 mg/dL (8.5-10.1); POTASSIUM 4.2 mmol/L (3.5-5.1); TOT PROT 7.5 g/dl (6.4-8.2)
[2019-12-30] MEDS ORDERED: LISINOPRIL 20 MG TABLET PO SCH (10:00)
[2019-12-30] MEDS ORDERED: PATIENT'S OWN MEDICATION (NON-FORMULARY) (Lisinopril/Hydrochlorothiazide [Lisinopril-Hctz PO SCH (10:00)
[2019-12-30] MEDS ORDERED: FAMOTIDINE 20 MG TABLET PO SCH (10:00)
[2019-12-30] MEDS ORDERED: HYDROCHLOROTHIAZIDE 12.5 MG CAPSULE (FP) PO SCH (10:00)
--- NOTE | 2019-12-30 10:15 | EKG ---
Test Reason : Blood Pressure : / mmHG Vent. Rate : 082 BPM Atrial Rate : 082 BPM P-R Int : 166 ms QRS Dur : 084 ms QT Int : 346 ms P-R-T Axes : 076 018 050 degrees QTc Int : 404 ms NORMAL SINUS RHYTHM POSSIBLE ANTERIOR INFARCT , AGE UNDETERMINED ABNORMAL ECG WHEN COMPARED WITH ECG OF 03-MAR-2018 16:30, NONSPECIFIC T WAVE ABNORMALITY NO LONGER EVIDENT IN INFERIOR LEADS Confirmed by MD Shana, Dez ([id number]) on 12/30/2019 10:15:15 AM Referred By: Confirmed By:Dez Saldana MD
[2019-12-30 10:29] VITALS: PULSE 87
--- NOTE | 2019-12-30 10:31 | CON.CARD ---
Consult Consult Specialty:: Cardiology - History of Present Illness History of Present Illness: 54y/o M with a significant past medical history of HLD, HTN, DM, colon ca (s/p resection 08/2017), and diabetes, who presents to the emergency department with from PMD office for chest pain x3 days. Pt states his CP is L sided, sharp in nature, radiating to his back, and reproducible to palpation. Pt states he was given aspirin and nitroglycerin at PMD office with mild relief of symptoms. The patient denies shortness of breath, headache and dizziness. Denies fever, chills, cough, nausea, vomiting, diarrhea and constipation. - History Source History Provided By: Patient, Medical Record - Past Medical History Cardio/Vascular: Yes: HTN, Hyperlipdemia Endocrine: Yes: Diabetes Mellitus - Alcohol/Substance Use Hx Alcohol Use: No - Smoking History Smoking history: Never smoked Have you smoked in the past 12 months: No Home Medications - Allergies Allergies/Adverse Reactions: Allergies Allergy/AdvReac Type Severity Reaction Status Date / Time No Known Allergies Allergy Verified 03/03/18 14:26 - Home Medications Home Medications: Ambulatory Orders Sitagliptin Phos/Metformin HCl [Janumet 50-1,000 mg Tablet] 50 mg PO BIDAC 08/28/16 Lisinopril/Hydrochlorothiazide [Lisinopril-Hctz 20-12.5 mg Tab] 1 each PO DAILY 02/18/18 Famotidine [Pepcid -] 20 mg PO DAILY #7 tablet 02/26/18 Review of Systems - Review of Systems Constitutional: reports: No Symptoms Eyes: reports: No Symptoms HENT: reports: No Symptoms Neck: reports: No Symptoms Cardiovascular: reports: Chest Pain Respiratory: reports: No Symptoms Gastrointestinal: reports: No Symptoms Genitourinary: reports: No Symptoms Breasts: reports: No Symptoms Reported Musculoskeletal: reports: No Symptoms Integumentary: reports: No Symptoms Neurological: reports: No Symptoms Endocrine: reports: No Symptoms Hematology/Lymphatic: reports: No Symptoms Psychiatric: reports: No Symptoms Vital Signs: Vital Signs Temperature 97.9 F 12/30/19 10:28 Pulse Rate 87 12/30/19 10:28 Respiratory Rate 16 12/30/19 10:28 Blood Pressure 132/78 12/30/19 10:28 O2 Sat by Pulse Oximetry (%) 100 12/30/19 10:28 Constitutional: Yes: Well Nourished, No Distress, Calm Eyes: Yes: WNL, Conjunctiva Clear, EOM Intact HENT: Yes: WNL, Atraumatic, Normocephalic Neck: Yes: WNL, Supple, Trachea Midline Respiratory: Yes: WNL, Regular, CTA Bilaterally Gastrointestinal: Yes: WNL, Normal Bowel Sounds Renal/: Yes: WNL Cardiovascular: Yes: WNL, Regular Rate and Rhythm Musculoskeletal: Yes: WNL Extremities: Yes: WNL Integumentary: Yes: WNL Neurological: Yes: WNL, Alert, Oriented ...Motor Strength: WNL Psychiatric: Yes: WNL, Alert, Oriented - Other Data Labs, Other Data: CBC, BMP 12/30/19 06:23 12/30/19 06:23 INR, PTT INR 1.05 (0.83-1.09) 12/29/19 13:50 Troponin, BNP 12/29/19 12/29/19 13:50 20:20 Troponin I < 0.02 < 0.02 Troponin, BNP 12/29/19 12/29/19 13:50 20:20 Troponin I < 0.02 < 0.02 Imaging - Results Chest X-ray: Image Reviewed (no i/e) EKG: Image Reviewed (sr old ant wall mi) Problem List - Problems (1) Allergic rhinitis Code(s): J30.9 - ALLERGIC RHINITIS, UNSPECIFIED Qualifiers: Allergic rhinitis trigger: unspecified Allergic rhinitis seasonality: unspecified seasonality Qualified Code(s): J30.9 - Allergic rhinitis, unspecified (2) Angioedema Code(s): T78.3XXA - ANGIONEUROTIC EDEMA, INITIAL ENCOUNTER Qualifiers: Encounter type: initial encounter Qualified Code(s): T78.3XXA - Angione urotic edema, initial encounter (3) Chest pain Code(s): R07.9 - CHEST PAIN, UNSPECIFIED (4) Diabetes Code(s): E11.9 - TYPE 2 DIABETES MELLITUS WITHOUT COMPLICATIONS (5) Gastroenteritis Code(s): K52.9 - NONINFECTIVE GASTROENTERITIS AND COLITIS, UNSPECIFIED (6) Hypertension Code(s): I10 - ESSENTIAL (PRIMARY) HYPERTENSION (7) Pancreatitis Code(s): K85.90 - ACUTE PANCREATITIS WITHOUT NECROSIS OR INFECTION, UNSP Qualifiers: Chronicity: acute Pancreatitis type: other Acute pancreatitis complication: unspecified Qualified Code(s): K85.80 - Other acute pancreatitis without necrosis or infection Assessment/Plan Chest pain, both at rest and with exertion. DM HTN Family hx unclear (pt does not know of the health of his siblings in [facility]) hyperlipidemia hx Colon CA TNI < 0.02 x 2. Rec: ECHO: normal LVEF; abnormal diastolic compliance F/u lipids, TSH, HGBA1c. On lisinopril and HCTZ for HTN. For Stress MIBI; if no significant ischemia, pt may be followed as outpatient from cardiac perspective. (information from Dr. Cerda notes negative stress MIBI in 05/2017; not seen since then).
--- NOTE | 2019-12-30 10:48 | ECHO ---
Version: 1 Name: MIKE MCCAIN Exam: Adult Echocardiogram Study Date: 12/30/2019, 9:11 AM Age: 54 Years MMode/2D Measurements & Calculations IVSd: 0.91 cm LVIDs: 2.44 cm LVIDd: 3.7 cm LVPWd: 0.90 cm LAV (MOD-bp): 44.0 ml ACS: 1.83 cm Ao root diam: 2.9 cm LVOT diam: 1.96 cm LA dimension: 2.9 cm Doppler Measurements & Calculations MV E max angel: 98.7 cm/sec Med E/e': 14.9 MV A max angel: 101.4 cm/sec Med Peak E' Angel: 6.6 cm/sec MV E/A: 0.97 Lat E/e': 12.2 Lat Peak E' Angel: 8.1 cm/sec Ao max P.8 mmHg JAJA(I,D): 2.9 cm Ao mean P.5 mmHg LV V1 mean: 60.8 cm/sec Ao V2 max: 109.7 cm/sec LV V1 mean P.64 mmHg PI end-d angel: 99.1 cm/sec TR max angel: 194.1 cm/sec TR max P.3 mmHg Procedure A two-dimensional transthoracic echocardiogram with color flow and Doppler was performed. The patien t was in normal sinus rhythm during the exam. Left Ventricle The left ventricle is normal in size. Left ventricular systolic function is normal. Ejection Fractio n = 65%. E/A reversal consistent with but not diagnostic of poor LV compliance. Right Ventricle The right ventricle is normal in size and function. Atria Normal left and right atrial size and function. Mitral Valve The mitral valve is normal. There is trace mitral regurgitation. Tricuspid Valve The tricuspid valve is normal. There is trace tricuspid regurgitation. Right ventricular systolic pr essure is normal. Aortic Valve The aortic valve is normal in structure and function. The aortic valve is trileaflet. Trace aortic regurgitation. Pulmonic Valve The pulmonic valve leaflets are thin and pliable; valve motion is normal. Trace pulmonic valvular regurgitation. Great Vessels The aortic root is normal size. Pericardium/Pleura There is no pericardial effusion. Summary Statements Left ventricular systolic function is normal. E/A reversal consistent with but not diagnostic of poor LV compliance The right ventricle is normal in size and function. There is trace mitral regurgitation. There is trace tricuspid regurgitation. Trace aortic regurgitation. Trace pulmonic valvular regurgitation. MD Tj Morales 12/30/2019, 10:48 AM Ordering Physician: Sissy Guerra Referring Physician: SISSY GUERRA Performed By: Genia Liriano
--- NOTE | 2019-12-30 11:05 | PN ---
Progress Note, Physician Chief Complaint: Pt A&Ox3; no chest pain presently. History of Present Illness: Mr. Castellanos is a 54y/o black man (b. [place]) with a significant past medical history of HLD, HTN, DM, colon CA (s/p resection 08/2017), who presents to the emergency department with from PMD office for chest pain x3 days. Pt states his CP is L sided, sharp in nature, radiating to his back, and reproducible with p alpation. Pt states he was given aspirin and nitroglycerin at PMD office with mild relief of symptoms. Pt has had similar chest pain in the past, and says he had two stress tests "last year", and ?cardiac angiogram ? last year at ? [facility]. The patient denies shortness of breath, headache and dizziness. Denies fever, chills, cough, nausea, vomiting, diarrhea and constipation. Pt walks often, and at times for miles, without chest pain or dyspnea. PMD: Garfield Hernadez Field Assembly Supervisor: Dr. Irma Cerda - Current Medication List Current Medications: Active Medications Famotidine (Pepcid -) 20 mg PO DAILY [facility] Last Admin: 12/30/19 10:24 Dose: 20 mg Documented by: Hydrochlorothiazide (Hctz -) 12.5 mg PO DAILY [facility] Last Admin: 12/30/19 10:24 Dose: 12.5 mg Documented by: Influenza Virus Vaccine (Flulaval Quad [id number] Syr) 60 mcg IM .ONCE ONE Stop: 12/30/19 06:01 Insulin Aspart (Novolog Vial Sliding Scale -) [address] [facility]; Protocol Last Admin: 12/30/19 06:22 Dose: Not Given Documented by: Lisinopril (Prinivil) 20 mg PO DAILY [facility] Last Admin: 12/30/19 10:24 Dose: 20 mg Documented by: Metformin HCl (Glucophage -) 1,000 mg PO BIDAC [facility] Last Admin: 12/30/19 06:22 Dose: 1,000 mg Documented by: Pneumococcal 13-Valent Conj Vacc (Prevnar 13 Syringe -) 0.5 ml IM .ONCE ONE Stop: 12/30/19 06:01 Sitagliptin Phosphate (Januvia -) 50 mg PO BIDAC [facility] Last Admin: 12/30/19 06:22 Dose: 50 mg Documented by: - Objective Vital Signs: Vital Signs Temperature 97.9 F 12/30/19 10:28 Pulse Rate 87 12/30/19 10:28 Respiratory Rate 16 12/30/19 10:28 Blood Pressure 132/78 12/30/19 10:28 O2 Sat by Pulse Oximetry (%) 100 12/30/19 10:28 Constitutional: Yes: Anxious Eyes: Yes: WNL HENT: Yes: WNL Neck: Yes: WNL Cardiovascular: Yes: S1, S2 Labs: CBC, BMP 12/30/19 06:23 12/30/19 06:23 INR, PTT INR 1.05 (0.83-1.09) 12/29/19 13:50 Assessment/Plan Chest pain, both at rest and with exertion. DM HTN Family hx unclear (pt does not know of the health of his siblings in [facility]) hyperlipidemia hx Colon CA TNI < 0.02 x 2. Rec: ECHO: normal LVEF; abnormal diastolic compliance F/u lipids, TSH, HGBA1c. On lisinopril and HCTZ for HTN. For Stress MIBI; if no significant ischemia, pt may be followed as outpatient from cardiac perspective. (information from Dr. Cerda notes negative stress MIBI in 05/2017; not seen since then).
[2019-12-30 14:16] VITALS: BP 128/90; TEMP 98.5
[2019-12-30] MEDS ORDERED: FLU VACCINE (FLULAVAL) PF 60 MCG/0.5 ML SYRINGE 2020-2021 IM ONE (16:00)
[2019-12-30] MEDS: PNEUMOCOCCAL 23 VACCINE 0.5 ML VIAL IM ONE ×2 (17:23→19:02)
== END 2019-12-30 20:00 | disposition home or self-care (01) ==
LOC: JER 13:25 → JERBED 17:36 → INTOOBSV 17:36 → J4S 21:14
PROVIDERS: ADMIT Internal Medicine; ATTEND Internal Medicine
PROC: 3E0234Z Introduction of Serum, Toxoid and Vaccine into Muscle, Percutaneous Approach (ICD-10-PCS; principal; 2019-12-29)
PROC: 3E013VG Introduction of Insulin into Subcutaneous Tissue, Percutaneous Approach (ICD-10-PCS; 2019-12-29)
DX: R07.9 Chest pain, unspecified (principal); I10 Essential (primary) hypertension; E11.9 Type 2 diabetes mellitus without complications; Z85.038 Personal history of other malignant neoplasm of large intestine; J30.9 Allergic rhinitis, unspecified; T78.3XXA Angioneurotic edema, initial encounter; K52.9 Noninfective gastroenteritis and colitis, unspecified; K85.90 Acute pancreatitis without necrosis or infection, unspecified
CPT/HCPCS: 36415; 71045-TC-FY; 78452-TC; 80053; 80061; 82550; 82553; 82962; 83036; 83721; 84443; 84484; 85025; 85610; 85730; 90732; 93005; 93010; 93017; 93306-TC; 99285-25; A9502; G0009; G0378; Q2036; U0003

== ENCOUNTER 2021-05-01 11:50 | Emergency (ER) | payer BC ==
[2021-05-01 11:55] VITALS: BMI 27.4
[2021-05-01] MEDS ORDERED: methylPREDNISolone NA SUCC 125 MG/2 ML VIAL IVPB ONE (12:30)
[2021-05-01] MEDS ORDERED: SODIUM CHLORIDE 0.9% 500 ML INFUS.BAG IV ONE (12:30)
[2021-05-01] MEDS ORDERED: FAMOTIDINE 20 MG/50 ML IVPB 20 MG/50 ML MG IVPB ONE ×2 (12:31→12:35)
[2021-05-01] MEDS ORDERED: methylPREDNISolone NA SUCC 125 MG/2 ML VIAL ONE (12:35)
[2021-05-01 13:36] VITALS: BP 138/88; PULSE 93; TEMP 98.2
== END 2021-05-01 15:31 | disposition home or self-care (01) ==
LOC: JERFT 11:50
PROC: 3E033GC Introduction of Other Therapeutic Substance into Peripheral Vein, Percutaneous Approach (ICD-10-PCS; principal; 2021-05-01)
DX: T78.40XA Allergy, unspecified, initial encounter (principal)
CPT/HCPCS: 99284-25